=== PATIENT | male | born 1940 | race Caucasian/White ===

== ENCOUNTER 2016-10-28 16:20 | Emergency (ER) | payer MEDICARE ==
[2016-08-03 10:23] VITALS: BMI 27.3
[~2016-10-28 16:20] MED LIST: ALLERGY RELIEF; ASPIRIN 81 MG E81 MG PO; BETIMOL15 ML EACH EYE; BYSTOLIC10 MG PO; FISH OIL 1,0001 CA1 PO; IMDUR30 MG PO; LIPITOR20 MG PO; MULTI-DAY VITAM1 TAB PO; NIASPAN1000 MG PO; PACERONE100 MG PO; PLAVIX75 MG PO; RESTORIL15 MG PO; SUPER B COMPLEX; TEMAZEPAM30 MG PO; TIMOPTIC 0.5 % O5 ML EACH EYE; TRIGLIDE160 MG PO; XALATAN 0.0052.5 ML; XALATAN 0.0052.5 ML RIGHT EYE; ZETIA10 MG PO; ZOCOR40 MG PO
== END 2016-10-28 18:50 | disposition left against medical advice (07) ==
LOC: D.ER 16:20
DX: M54.5 Low back pain (principal)

== ENCOUNTER → 2017-06-23 16:36 | Outpatient (CLI) | payer MEDICARE ==
[2016-08-03 10:23] VITALS: BMI 27.3
[2017-06-23 18:19] LABS: CHOL - HDL RATIO 3.3 ratio (2.3-4.9)
== END | disposition home or self-care (01) ==
LOC: D.LABREF 16:36
PROVIDERS: Internal Medicine Interventional Cardiology
DX: E78.5 Hyperlipidemia, unspecified (principal)

== ENCOUNTER 2017-11-04 11:29 | Inpatient (IN) | payer OTHER ==
[~2017-11-04] VITALS: Ht 177.8 cm; Wt 86.2 kg
--- NOTE | ~2017-11-04 | OP ---
PATIENT NAME: HARRISON MARTINES MEDICAL RECORD: [id number] :38 LOCATION:D.MS Harden2234 ADMISSION DATE:11/04/17 SURGEON: YANELIS CALL MD DATE OF OPERATION: 11/07/2017 PREOPERATIVE DIAGNOSIS: Biliary dyskinesia. POSTOPERATIVE DIAGNOSES: Biliary dyskinesia with hepatomegaly. PROCEDURES: 1. Laparoscopic cholecystectomy. 2. Intraoperative cholangiography without immediate surgeon interpretation. 3. An 18-gauge core needle liver biopsy. SURGEON: Yanelis Call MD CHAIN PULLER: None. BLOOD LOSS: Minimal. ANESTHESIA: General. COMPLICATIONS: None. The risks, possible complications and alternatives to procedure were explained to the patient. The patient elects to proceed. The indication for liver biopsy was hepatomegaly. OPERATIVE COURSE: The patient was conveyed to the operating room electively on 11/07/2017. General anesthesia was induced by the anesthesia staff. The abdomen was sterilely prepped and draped. A small skin lydia was accomplished in the left upper quadrant. Veress needle was inserted through the skin lydia into the peritoneal cavity. CO2 insufflation was begun. Once a sufficient pneumoperitoneum had been achieved, a 5-mm trocar was inserted through an incision in the right upper quadrant. Under direct internal vision utilizing a television camera, a 12-mm trocar was inserted through an incision at the umbilicus. Another 5-mm trocar was inserted through an incision in the epigastrium. Another 5-mm trocar was inserted through an incision far laterally in the right upper quadrant. During insertion of the Veress needle and all trocars, there appeared to have been no injury to the bowels, any intraperitoneal, or retroperitoneal structures. Under laparoscopic guidance, I percutaneously accessed the right upper quadrant utilizing an 18-gauge core needle liver biopsy device. Cores were obtained over the convexity of the liver. The biopsy sites were made hemostatic with electrocautery. I then advanced a cholangiogram trocar. I punctured the fundus of the gallbladder. I aspirated bile. I then injected dye. A real time cholangiography images were obtained. These were sent to the radiologist for interpretation. The cholangiogram trocar was removed. The gallbladder was grasped and retracted cephalad. The infundibulum was grasped and retracted laterally. Blunt dissection was begun on the triangle of Calot. Two cystic arteries and one OPERATIVE REPORT [id number] MARTINES,HARRISON R cystic duct were identified. These were clipped multiply and divided between clips. Gallbladder was then excised from its bed in the liver. It was placed within an Endobag retrieval device and was withdrawn through the umbilical fascia defect. I irrigated and aspirated in the right upper quadrant. There was no bleeding even at low pressure of 8. Elijah was added to the gallbladder fossa for additional hemostasis. A Gene-Janna suture closure device and 0 Vicryl sutures were used to close the umbilical fascial defect. All the trocars were removed and the abdomen desufflated. The skin at the umbilicus was closed with interrupted 4-0 Vicryl Rapide sutures. The other skin incisions were closed with interrupted 3-0 Vicryls. Benzoin and Steri-Strips were applied. The patient was then extubated and conveyed to post-anesthesia care unit where the patient was in stable condition. TRANSINT:[id number] Voice Confirmation ID: [id number] DOCUMENT ID: [id number] YANELIS CALL MD at 0938 CC: JANETTE JOHNSON DO [id number] DICTATION DATE: 11/07/17 171 CYBER SECURITY SPECIALIST: 11/07/171927 DIS IN 11/09/17 [facility] [address] [place] [address]
--- NOTE | ~2017-11-04 | CN ---
PATIENT NAME:HARRISON MARTINES MEDICAL RECORD: [id number] : 38 LOCATION:D.MS [address]4 ADMIT DATE: 11/04/17 ACCOUNT: [id number] CONSULTING PHYSICIAN: YANELIS CALL MD REFERRING PHYSICIAN: JANETTE JOHNSON DO DATE OF CONSULTATION: 11/04/2017 HISTORY OF PRESENT ILLNESS: The patient has been admitted with nausea and vomiting, and the patient complained of abdominal pain to the Emergency Room practitioner; however, the patient denies any abdominal pain to me. Nothing seems to exacerbate and nothing seems to alleviate it. Reportedly, the patient has had several episodes of this in the past. The patient has poor short-term memory and poor long-term memory as well. REVIEW OF SYSTEMS: Positive for fatigue. No chest pain, no shortness of breath, no diarrhea, no back pain, no headache, no agitation, no rash, no night sweats, no weight loss, no anorexia, no hemoptysis. PAST MEDICAL AND SURGICAL HISTORY: Hyperlipidemia, chest pain, pneumonia, dehydration, and hypertension. FAMILY HISTORY: Reviewed and is not pertinent. HOME MEDICINES: Aspirin, Zetia, temazepam, tamsulosin, ezetimibe, Plavix, fenofibrate. ALLERGIES: CODEINE AND SULFATES. SOCIAL HISTORY: Nonsmoker. This is a consultation note addendum. For the typed portion of the consult note, please see the chart. This will include past medical and surgical history, current medications, allergies, social history as well as family history. PHYSICAL EXAMINATION: GENERAL: The patient does not appear acutely ill. He does not appear chronically ill. VITAL SIGNS: Reviewed. EARS: External ears appear normal. EYES: Extraocular movements are intact. NECK: Trachea is midline. CHEST: No intercostal retractions. PULMONARY: Nonlabored. No stridor. ABDOMEN: Nontender. EXTREMITIES: No peripheral cyanosis. INTEGUMENT: No rash, no ulcerations. PSYCHIATRIC: Normal affect. NEUROLOGIC: There is evidence of loss of higher cortical functioning, poor short-term memory, poor long-term memory. BACK: No thoracic kyphosis. IMPRESSION: Nausea and vomiting of uncertain etiology. PLAN: Continue with a gallbladder workup. CONSULT REPORT [id number] HARRISON MARTINES TRANSINT:[id number] Voice Confirmation ID: [id number] DOCUMENT ID: [id number] YANELIS CALL MD at 0938 CC: [id number] DICTATION DATE: 11/07/17 170 BEARINGIZER: 11/07/171926 DIS IN 11/09/17 [id number] [place] [address]
[2017-11-04 12:18] LABS: BASOPHILS 0.2 % (0-2); EOSINOPHILS 0.1 % (0-7); HEMATOCRIT 45.5 % (42.0-54.0); HEMOGLOBIN 15.6 g/dL (13.5-17.5); IMMATURE GRANULOCYTES 0.3 % (0-5); LYMPHOCYTES 16.1 % (15-50); MCH 30.1 pg (26.0-34.0); MCHC 34.3 g/dL (31.0-37.0); MCV 87.7 fL (80.0-100.0); MEAN PLATELET VOLUME 10.8 fL (7.4-10.4); MONOCYTES 4.9 % (2-11); NEUTROPHILS 78.4 % (40-80); RBC 5.19 10x6/uL (4.20-6.10); RDW 13.3 % (11.5-14.5); WBC 17.5 10x3/uL (4.8-10.8)
[2017-11-04 12:37] LABS: ALBUMIN 4.4 g/dL (3.4-5.0); ALKALINE PHOSPHATASE 42 U/L (46-116); ALT (SGPT) 24 U/L (10-68); CALC OSMOLALITY 283 mosm/kg (275-300); CALCIUM 10.4 mg/dL (8.5-10.1); CHLORIDE - SERUM 100 mmol/L (98-107); CREATININE - SERUM 1.5 mg/dL (0.6-1.3); POTASSIUM - SERUM 4.7 mmol/L (3.5-5.1); PROTEIN - SERUM 9.1 g/dL (6.4-8.2); SODIUM 137 mmol/L (136-145); UREA NITROGEN 28 mg/dL (7-18); eGFR NON AFRICAN AMERICAN 48 mL/min (90-120)
[2017-11-04 12:38] LABS: PLATELET COUNT 549 10x3/uL (130-400)
[2017-11-04 12:39] LABS: GLUCOSE 179 mg/dL (74-106); INR 1.04 (0.85-1.17); PROTIME 13.2 SECONDS (11.6-15.0)
[2017-11-04 12:53] LABS: APPEARANCE CLEAR (CLEAR); BILIRUBIN NEGATIVE (NEGATIVE); COLOR YELLOW (YELLOW); GLUCOSE NEGATIVE (NEGATIVE); KETONE NEGATIVE (NEGATIVE); NITRITE NEGATIVE (NEGATIVE); PROTEIN 2+ mg/dL (NEGATIVE); UROBILINOGEN NORMAL (NORMAL)
[2017-11-04 12:54] LABS: BACTERIA MODERATE /hpf (NONE SEEN); EPITHELIAL CELLS OCC /hpf (0-5); MUCUS <1+ /lpf (NONE SEEN); RED CELLS - URINE 0-5 /hpf (0-5); WHITE CELLS - URINE 0-5 /hpf (0-5)
[2017-11-04 12:58] LABS: AMYLASE - SERUM 54 U/L (25-115); CREATINE KINASE 242 UL (21-232); LIPASE 76 U/L (73-393); PRO BNP 3994 pg/mL (0-450); TROPONIN-I 0.045 ng/mL (0.000-0.060)
[2017-11-04 13:27] LABS: CKMB 2.7 U/L (0.0-3.6)
[2017-11-05] VITALS: BP 166/58
[2017-11-05 04:58] LABS: BASOPHILS 0.1 % (0-2); EOSINOPHILS 0.2 % (0-7); HEMATOCRIT 42.7 % (42.0-54.0); HEMOGLOBIN 14.2 g/dL (13.5-17.5); IMMATURE GRANULOCYTES 0.2 % (0-5); LYMPHOCYTES 17.1 % (15-50); MCH 29.8 pg (26.0-34.0); MCHC 33.3 g/dL (31.0-37.0); MCV 89.5 fL (80.0-100.0); MONOCYTES 8.4 % (2-11); PLATELET COUNT 461 10x3/uL (130-400); RBC 4.77 10x6/uL (4.20-6.10); RDW 13.5 % (11.5-14.5); WBC 16.2 10x3/uL (4.8-10.8)
[2017-11-05 05:11] LABS: ANION GAP 16.1 mmol/L (8-16); CALCIUM 9.4 mg/dL (8.5-10.1); CARBON DIOXIDE 23.2 mmol/L (21.0-32.0); POTASSIUM - SERUM 4.3 mmol/L (3.5-5.1)
[2017-11-05 05:17] LABS: CREATININE - SERUM 1.1 mg/dL (0.6-1.3)
[2017-11-05] MEDS ORDERED: FLOMAX0.4 MG PO (06:21)
[2017-11-05 08:34] VITALS: BP 140/48
[2017-11-05 14:09] VITALS: Ht 177.8 cm; Wt 86.2 kg
[2017-11-05 16:17] VITALS: BP 153/73
[2017-11-05 22:01] VITALS: BP 123/46
[2017-11-06] VITALS (7 sets, daily range): BP systolic 90–180; BP diastolic 44–66
[2017-11-06 05:02] LABS: ANION GAP 13.5 mmol/L (8-16); BILIRUBIN - TOTAL 0.3 mg/dL (0.2-1.3); CALCIUM 8.6 mg/dL (8.5-10.1); CARBON DIOXIDE 24.4 mmol/L (21.0-32.0); CREATININE - SERUM 1.1 mg/dL (0.6-1.3); POTASSIUM - SERUM 3.9 mmol/L (3.5-5.1)
[2017-11-06 05:10] LABS: PROTEIN - SERUM 6.4 g/dL (6.4-8.2)
[2017-11-07 04:29] VITALS: BP 135/4
[2017-11-07 12:34] VITALS: BP 177/53
[2017-11-07 18:58] VITALS: BP 152/53
[2017-11-08 05:43] LABS: ALBUMIN 2.5 g/dL (3.4-5.0); ALKALINE PHOSPHATASE 30 U/L (46-116); ALT (SGPT) 68 U/L (10-68); BILIRUBIN - TOTAL 0.31 mg/dL (0.2-1.3); CALC OSMOLALITY 272 mosm/kg (275-300); CALCIUM 8.1 mg/dL (8.5-10.1); CARBON DIOXIDE 24.7 mmol/L (21.0-32.0); CHLORIDE - SERUM 104 mmol/L (98-107); CREATININE - SERUM 0.9 mg/dL (0.6-1.3); GLUCOSE 113 mg/dL (74-106); MAGNESIUM - SERUM 1.6 mg/dL (1.8-2.4); PHOSPHOROUS 3.1 mg/dL (2.5-4.9); POTASSIUM - SERUM 3.5 mmol/L (3.5-5.1); PROTEIN - SERUM 5.9 g/dL (6.4-8.2); SODIUM 137 mmol/L (136-145); UREA NITROGEN 7 mg/dL (7-18); eGFR NON AFRICAN AMERICAN 87 mL/min (90-120)
[2017-11-08 05:44] LABS: BASOPHILS 0.3 % (0-2); EOSINOPHILS 1.3 % (0-7); HEMATOCRIT 38.5 % (42.0-54.0); HEMOGLOBIN 12.9 g/dL (13.5-17.5); IMMATURE GRANULOCYTES 0.2 % (0-5); LYMPHOCYTES 19.9 % (15-50); MCH 29.9 pg (26.0-34.0); MCHC 33.5 g/dL (31.0-37.0); MCV 89.1 fL (80.0-100.0); MONOCYTES 7.6 % (2-11); NEUTROPHILS 70.7 % (40-80); PLATELET COUNT 375 10x3/uL (130-400); RBC 4.32 10x6/uL (4.20-6.10); RDW 13.3 % (11.5-14.5); WBC 11.8 10x3/uL (4.8-10.8)
[2017-11-08 06:49] VITALS: BP 143/64
[2017-11-08 08:45] VITALS: BP 139/54
[2017-11-08 12:18] VITALS: BP 189/75
[2017-11-08 16:31] VITALS: BP 125/62
[2017-11-08 20:24] VITALS: BP 177/72
[2017-11-08 23:39] VITALS: BP 124/67
[2017-11-09 04:33] VITALS: BP 160/67
[2017-11-09 07:54] VITALS: BP 150/117
[2017-11-09 11:38] VITALS: BP 132/76
== END 2017-11-09 12:07 | disposition home or self-care (01) | DRG 419 ==
LOC: D.ER 11:29 → OBSVTIME 18:00 → D.MS 18:00
PROVIDERS: Emergency Medicine; Family Medicine; Nurse Practitioner Family; Surgery
PROC: 0FB03ZX Excision of Liver, Percutaneous Approach, Diagnostic (ICD-10-PCS; 2017-11-07)
PROC: 0FT44ZZ Resection of Gallbladder, Percutaneous Endoscopic Approach (ICD-10-PCS; principal; 2017-11-07 14:15)
PROC: BF121ZZ Fluoroscopy of Gallbladder using Low Osmolar Contrast (ICD-10-PCS; 2017-11-07 14:15)
DX: K82.8 Other specified diseases of gallbladder (principal); I10 Essential (primary) hypertension; H40.9 Unspecified glaucoma; R16.0 Hepatomegaly, not elsewhere classified

== ENCOUNTER 2018-01-02 10:13 | Inpatient (IN) | payer OTHER ==
[~2018-01-02] VITALS: Ht 177.8 cm; Wt 80.7 kg
--- NOTE | ~2018-01-02 | HEMODYNAMI ---
PATIENT:HARRISON MARTINES MEDICAL RECORD: [id number] : 38 [facility] [address] [facility] [id number] ADMISSION DATE: 01/02/18 Generatedon:01/03/201810:45 Patient name: HARRISON MARTINES Patient #: [id number] SSN: : 1940 Date of study: 01/03/2018 Page: Of Hemodynamic Procedure Report Patient Data Patient Demographics Procedure consent was obtained First Name: HARRISON Gender: Male Last Name: BOBBI : 1940 [facility] Initial: R Age: 77 year(s) Patient #: [id number] Race: Additional ID: [id number] Contact details [address]: [address] [place] [address] State: [place] City: [place] Zip code: [address] Past Medical History History of disease Date Diagnosis Comments PVD Allergies Allergen Reaction Date Comments Reported Codeine 05/07/2015 Other allergy 08/03/2016 Codeine Other allergy 01/03/2018 Codeine, Iodine Admission Admission Data Admission Date: 01/02/2018 Admission Time: 10:13 Room #: D.2121 Lab Results Lab Result Date: 01/03/2018 Lab Result Time: 0:00 Biochemistry Name Units Result Min Max BUN mg/dl 21 --(----)-* 7 18 Creatinine mg/dl 1.1 --(--*-)-- 0.6 1.3 CBC Name Units Result Min Max Hemoglobin g/dl 13.8 --(*---)-- 13.5 17.5 Procedure Procedure Types Cath Procedure Diagnostic Procedure LHC LHC w/Coronaries w/Grafts Cardioversion External Procedure Description Procedure Date Procedure Date: 01/03/2018 Procedure Start Time: 10:29 Procedure End Time: 10:41 Procedure Staff Name Function Rachel Tello MD Admitting Physician Rachel Tello MD Ordering physician Rachel Tello MD Interpreting senior technical trainer Jason Boyd MD Performing Physician Bel Aragon RT Monitor Nahun Fatima RN Nurse Jennifer Danielle RT Scrub Procedure Data Cath Procedure Fluoroscopy Diagnostic fluoroscopy Total fluoroscopy Time: 2.6 time: 2.6 min min Diagnostic fluoroscopy Total fluoroscopy dose: 332 dose: 332 mGy mGy Contrast Material Contrast Material Type Amount (ml) Isovue 300 62 Entry Location Entry Primary Successful Side Size Upsize Upsize Entry Closure Succes sful Closure Location (Fr) 1 (Fr) 2 (Fr) Remarks Device Remarks Femoral Right 5 Fr Exoseal artery Estimated blood loss: 10 ml Diagnostic catheters Device Type Used For End Catheter Placement MULTIPACK Pigtail 5 Fr Procedure catheter MULTIPACK JL 4.0 5Fr Procedure catheter MULTIPACK 3DRC 5Fr Procedure catheter DIAGNOSTIC AR 2 MOD 5 Fr Procedure catheter ([id number]) Procedure Complications No complications Procedure Medications Medication Administration Route Dosage Oxygen NC 6 l/min 0.9% NaCl I.V. 100 ml/hr Heparin Flush Bag added to field 2 bags (1000units/500ml NS) Refer to Anesthesia Notes for Sedation Medications Hemodynamics Rest HGB: 13.8 (g/dl) Heart Rate: 27 (bpm) Snapshots Pre Cath Intra NCS Post Cath Vital Signs Time Heart Resp SPO2 etCO2 NIBP (mmHg) Rhythm Pain Sedation Rate (ipm) (%) (mmHg) Status Level (bpm) 10:15:49 91 21 96 0 171/103(131) NSR 0 (11) 10(A) , No pain 10:26:50 84 18 27.9 152/83(127) NSR 0 (11) 9(A) , No pain 10:31:06 80 18 98 32.4 140/72(106) NSR 0 (11) 9(A) , No pain 10:35:20 81 16 97 33.9 125/64(93) NSR 0 (11) 9(A) , No pain 10:39:32 82 19 98 34.7 122/67(90) NSR 0 (11) 9(A) , No pain Medications Time Medication Route Dose Verified Delivered Reason Notes Effec tiveness by by 10:17:28 Oxygen NC 6 Jason Garnica used for l/min Deb Fatima supervisor cell efficiency 10:17:37 0.9% NaCl I.V. 100 Jasoncecilio Ringy Per ml/hr Deb Fatima RN physician 10:17:45 Heparin Flush added 2 Jason Garnica used for Bag to bags Deb Fatima supervisor cell efficiency (1000units/500ml field NS) 10:18:45 Refer to Jason Garnica Anesthesia Notes Deb Fatima RN for Sedation Medications Procedure Log Time Note 10:00:40 Jennifer Shashi RT(R) sent for patient. Start room use. 10:13:28 Vital chart was started 10:13:35 Diagnostic Cath status Elective 10:13:42 Time tracking: Regular hours 10:13:47 Plan of Care:Hemodynamics will remain stable., Cardiac rhythm will remain stable., Comfort level will be maintained., Respiratory function will remain adequate., Patient/ family verbilizes understanding of procedure., Procedure tolerated without complication., Recovers from procedure without complications.. 10:13:54 Patient received from Med II to CCL 2 Alert and oriented. Tansferred to table in Supine position. 10:13:55 Warm blankets applied, and mendel hugger turned on for patient comfort. 10:13:56 Correct patient and procedure confirmed by team. 10:13:59 Signed procedure consent form obtained from patient. 10:14:00 ECG and BP/O2 sat monitors applied to patient. 10:14:01 Baseline sample Acquired. 10:14:12 Full Disclosure recording started 10:14:20 H&P Date Dictated: 01/03/2018 Within 30 days and on chart.. 10:14:22 Pre-procedure instructions explained to patient. 10:14:24 Family in patients room. 10:14:26 Patient NPO since Midnight. 10:14:42 Patient allergic to Other allergyCodeine, Iodine 10:14:45 Is the patient allergic to Iodine/contrast media? Yes. 10:14:46 Was the patient premedicated? Yes 10:16:37 Baseline sample Acquired. 10:16:54 Rhythm: atrial fibrillation 10:17:04 Quick Combo opened to sterile field. 10:17:10 Is patient on blood thinner?Yes 10:17:13 ACC The patient was administered the following blood thiners within the last 24 hours: ACCPlavix 10:17:16 Patient diabetic? No. 10:17:20 Snore? Yes 10:17:22 Sleep apnea? No 10:17:27 Dentures? Yes ? 10:17:28 Oxygen 6 l/min NC was administered by Nahun Fatima RN; used for procedure; 10:17:37 0.9% NaCl 100 ml/hr I.V. was administered by Nahun Fatima RN; Per physician; 10:17:37 IV patent on arrival in right forearm with 0.9% NaCl at [facility]. 10:17:45 Heparin Flush Bag (1000units/500ml NS) 2 bags added to field was administered by Nahun Fatima RN; used for procedure; 10:18:03 Lab Result : Creatinine 1.1 mg/dl 10:18:03 Lab Result : BUN 21 mg/dl 10:18:03 Lab Result : Hemoglobin 13.8 g/dl 10:18:08 Lab results completed and on chart. 10:18:12 Right groin area was prepped with chlora-prep and draped in sterile fashion 10:18:13 Alarms reviewed by R. N. 10:18:14 Sharps counted by scrub and verified by R.N. 10:18:16 Physician paged 10:18:16 Physician arrived 10:18:18 --------ALL STOP TIME OUT------ 10:18:19 Final Timeout: patient, procedure, and site verified with staff and physician. All members of the team are in agreement. 10:18:22 Right groin site verified by team. 10:18:28 Physical assessment completed. ASA score P 2 - A patient with mild systemic disease as per Jason Boyd MD. 10:18:35 Sedation plan: TIVA Medication:Propofol 10:18:40 Use device set Femoral Dx 10:18:42 ACIST Syringe (96974) opened to sterile field. 10:18:42 Bag Decanter () opened to sterile field. 10:18:43 Medline Cath Pack ([id number]) opened to sterile field. 10:18:44 SHEATH 5FR [place] (UFM143) opened to sterile field. 10:18:44 DIAGNOSTIC WIRE .035 260cm J wire (620708) opened to sterile field. 10:18:45 Refer to Anesthesia Notes for Sedation Medications was administered by Nahun Fatima RN; ; 10:18:48 ACIST Hand Control (98719) opened to sterile field. 10:18:49 ACIST Manifold (34293) opened to sterile field. 10:18:49 DIAGNOSTIC Multipack 5Fr catheter set ([id number]) opened to sterile field. 10:18:49 Tegaderm 4 x 4 (1626W) opened to sterile field. 10:18:52 PERCUTANEOUS ENTRY 19GA needle opened to sterile field. 10:24:17 Procedure started. 10:24:44 Quick combo pads placed on patients chest and back. 10:24:47 Defibrillator synced and charged to 250 Joules. 10:24:49 Shock delivered. 10:26:11 Patient cardioverted to sinus rhythm . 10:29:14 Local anesthetic to right femoral artery with Lidocaine 2% by Jason Boyd MD.INITIAL ACCESS ONLY 10:29:25 A 5 Fr sheath was inserted into the Right Femoral artery 10:29:28 Zero performed for pressure channel P1 10:29:57 A MULTIPACK Pigtail 5 Fr catheter was advanced over the wire and used for Procedure. 10:31:20 LV angiography performed. 10:33:06 EF : 40 % 10:33:07 Catheter removed. 10:33:17 A MULTIPACK JL 4.0 5Fr catheter was advanced over the wire and used for Procedure. 10:33:45 LCA angiography performed. 10:33:47 Catheter removed. 10:34:39 A MULTIPACK 3DRC 5Fr catheter was advanced over the wire and used for Procedure. 10:34:58 STRANGE to LAD angiography performed. 10:35:13 RCA angiography performed. 10:35:39 Catheter removed. 10:36:20 A DIAGNOSTIC AR 2 MOD 5 Fr catheter ([id number]) was advanced over the wire and used for Procedure. 10:36:41 SVG to Circ angiography performed. 10:36:51 SVG to RCA angiography performed. 10:37:54 Catheter removed. 10:38:09 Sheath removed intact; hemostasis achieved with Exoseal to the Right Femoral artery. 10:38:12 Procedure ended.(Physican Out) 10:38:33 Fluoroscopy time 02.60 minutes. 10:38:38 Fluoroscopy dose: 332 mGy 10:38:38 Flurop Dose total: 332 10:38:50 Contrast amount:Isovue 300 62ml. 10:38:52 Sharps counted by scrub and verified by R.N. 10:38:58 Insertion/operative site no bleeding no hematoma. 10:39:01 Post-op/insertion site Right Femoral artery dressed using a 4 x 4 and Tegaderm. 10:39:06 EXOSEAL 5Fr (EX500) opened to sterile field. 10:39:50 Post right femoral artery:stable 10:39:53 Post Procedure Pulses reassessed and unchanged 10:39:58 Post-procedure physical assessment completed. ASA score P 2 - A patient with mild systemic disease as per Jason Boyd MD. 10:40:02 Post procedure rhythm: sinus rhythm 10:40:08 Estimated blood loss: 10 ml 10:40:11 Post procedure instruction explained to patient.Patient verbalizes understanding. 10:40:42 Procedure type changed to Cath procedure, Diagnostic procedure, LHC, LHC w/Coronaries w/Grafts, Cardioversion External 10:40:43 Procedure and supply charges have been captured, reviewed, submitted and are correct. 10:41:10 Procedure Complication : No complications 10:41:12 Vital chart was stopped 10:41:13 See physician's report for complete and final results. 10:41:14 Report given to Pre/Post Procedure Room. 10:41:20 Patient transfered to [facility] with Bed. 10:41:30 Procedure ended. 10:41:30 Full Disclosure recording stopped 10:41:33 End room use (Document Last) Device Usage Item Name Manufacture Quantity Catalog Hospital Part Current Minim al Lot# / Number Charge Number Stock Stock Serial# Code Quick Combo Edge Systems 1 [id number] 637075 022522 488152 5 ACIST Acist 1 95277 868064 985337 426934 20 Syringe Medical (55957) Systems Inc Bag Decanter Microtek 1 2001S 643238 84021 555533 5 () Medical Inc. Medline Cath Cardinal 1 [id number] 701024 13956 776331 5 Pack Health ([id number]) SHEATH 5FR Terumo 1 IAN210 028638 124236 484204 40 [place] (DNB544) DIAGNOSTIC St Emigdio 1 065249 124408 467401 883125 30 WIRE .035 260cm J wire (622976) ACIST Hand Acist 1 35423 389799 512646 858606 5 Control Medical (02019) Systems Inc ACIST Acist 1 84587 409930 545305 228883 5 Manifold Medical (73554) Systems Inc DIAGNOSTIC Cardinal 1 [id number] 617649 45418 558188 30 Multipack Health 5Fr catheter set (VT3957) Tegaderm 4 x 3M 1 1626W 587174 164885 425474 5 4 (1626W) PERCUTANEOUS [facility] 1 X10582 185699 923117 5 ENTRY 19GA needle MULTIPACK Cardinal 1 991076 5 Pigtail 5 Fr Health catheter MULTIPACK JL Cardinal 1 848783 5 4.0 5Fr Health catheter MULTIPACK Cardinal 1 083077 5 3DRC 5Fr Health catheter DIAGNOSTIC Cardinal 1 [id number] 959160 038521 102024 20 AR 2 MOD 5 Health Fr catheter ([id number]) EXOSEAL 5Fr Cardinal 1 EX500 048681 907355 586531 10 (EX500) Health Signature Audit [place] Stage Time Signature Unsigned Intra-Procedure 01/03/2018 Bel Aragon 10:44:58 AM RT(R) Signatures Monitor : Bel Aragon Signature : RT Date : Time : [id number] [place] [address]
--- NOTE | ~2018-01-02 | CN ---
PATIENT NAME:HARRISON MARTINES MEDICAL RECORD: [id number] : 38 LOCATION:. D.2121 ADMIT DATE: 01/02/18 ACCOUNT: [id number] CONSULTING PHYSICIAN: MADELINE HARRIS MD REFERRING PHYSICIAN: JANETTE JOHNSON DO DATE OF CONSULTATION: 01/02/2018 CARDIOLOGY CONSULT DIAGNOSES: 1. Angina. 2. Coronary disease. 3. Previous PTCA and stent. 4. New-onset atrial fibrillation. 5. Hyperlipidemia. HISTORY: Mr. Martines began having symptomatology this morning of chest discomfort and palpitations. He was found to be in atrial fibrillation with rapid response. He has ST-T changes anteriorly. His last PTCA and stent was in RCA in July of 2016. REVIEW OF SYSTEMS: The patient reports easy bruising but reports no swollen glands. The patient reports no fever, no night sweats, no significant weight gain, no significant weight loss. No significant exercise tolerance. The patient reports no dry eyes, no irritation, no vision change. Patient reports no difficulty hearing and no ear pain. Patient reports no frequent nose bleeds or nose and sinus problems. Patient reports on arm pain on exertion. No shortness of breath while lying down. No history of heart murmur. Patient reports no cough, no wheezing or coughing up blood. Patient reports no abdominal pain, no vomiting. Normal appetite. No diarrhea and not vomiting blood. No nausea and no constipation. Patient reports no incontinence. No difficulty urinating. No hematuria. No increased frequency. Patient reports no muscle aches. No weakness, no arthralgias, no back pain. No swelling of the extremities. Patient reports no abnormal mole, no jaundice, no rashes. Reports no loss of consciousness. No weakness and no numbness. No seizures, dizziness, or headaches. The patient reports no depression, no sleep disturbance, feeling safe in a relationship and no alcohol abuse. Patient reports on fatigue. Reports no runny nose or sinus pressure. No itching, no hives, and no frequent sneezing. PHYSICAL EXAMINATION: GENERAL APPEARANCE: Well-nourished, well-developed, appears stated age. Level of distress, comfortable. PSYCHIATRIC: Mental status, alert, normal affect. Orientation, oriented to time, place and person. EYES: Lids and conjunctiva, noninjected. No discharge, no pallor. ENT: Lips, teeth, gums, normal dentition. Oropharynx, no cyanosis, no pallor. NECK: Carotid arteries, bilateral normal upstroke, no bruits, no thrills. JUGULAR VEINS: No jugular venous pressure or distention. CERVICAL LYMPH NODES: Nontender, nonenlarged. THYROID: Not enlarged. Nontender. No nodules. LUNGS: Respiratory effort, unlabored. CHEST: Normal curvature. No thoracic deformity. No chest wall tenderness. Percussion, resonant. Auscultation, clear. No wheezes, no rales, no rhonchi. CARDIOVASCULAR: Precordial exam, nondisplaced. No heaves or pericardial CONSULT REPORT [id number] MARTINESHARRISON R thrills. Rate and rhythm, regular. Heart sounds, normal S1, normal S2. No S3, no gallop, no rub. Systolic murmur, not heard. Diastolic murmur, not heard. EXTREMITIES: No cyanosis, no edema. Peripheral pulses, full and equal in all extremities, except as noted. No bruits appreciated. ABDOMEN: Soft, nondistended. Normal aorta. No bruit. Nontender. No masses. Liver, nontender, no hepatomegaly. Spleen, nontender, no splenomegaly. MUSCULOSKELETAL: No joint tenderness. No joint swelling. No erythema. NEUROLOGICAL: Normal gait, normal strength, normal tone. SKIN: Warm and dry. OVERALL IMPRESSION: 1. Atrial fibrillation with rapid ventricular response. At this time, we will give him IV Cardizem bolus 20 mg times one and start him on sotalol 120 mg p.o. b.i.d. 2. Ischemic heart disease and angina. Most likely, he has recurrent hemodynamically significant disease with EKG changes and new-onset atrial fibrillation. We will slow his rate down. Plan for cardiac catheterization in the a.m. If he does not convert pharmacologically, we will perform DC cardioversion with cardiac catheterization in the a.m. TRANSINT:[id number] Voice Confirmation ID: [id number] DOCUMENT ID: [id number] MADELINE HARRIS MD at 1041 CC: [id number] DICTATION DATE: 01/02/18 1143 GROUP HOME SUPERVISOR: 01/02/18 1159 ADM IN [address] [place] [address]
--- NOTE | ~2018-01-02 | OP ---
PATIENT NAME: HARRISON MARTINES MEDICAL RECORD: [id number] :38 LOCATION:D.M2 D.2121 ADMISSION DATE:01/02/18 SURGEON: MADELINE HARRIS MD DATE OF OPERATION: 01/03/2018 PROCEDURES: 1. DC cardioversion. 2. Left heart catheterization. 3. Selective coronary angiography. 4. Left ventriculogram. 5. Vein graft angiography. 6. STRANGE angiography. INDICATION: Angina and coronary artery disease. PROCEDURE IN DETAIL: After informed consent was obtained and after a detailed explanation of risks, benefits as well as alternative therapies, the patient elected to proceed with angiogram and cardioversion. IV conscious sedation was performed per anesthesia. Continuous heart rate, O2 saturation, blood pressure monitoring all undertaken, all of which remains stable. FINDINGS: Left ventriculogram was performed in standard 30-degree MENDEZ view, reveals mild global hypokinesis throughout all segments. Overall ejection fraction 40%. SELECTIVE CORONARY ANGIOGRAPHY: 1. Left main showed no significant angiographic disease. 2. Left anterior descending is totally occluded in the proximal vessel. 3. Left circumflex is totally occluded in the proximal vessel. 4. Right coronary is totally occluded in the proximal vessel. 5. STRANGE to the LAD is widely patent. Distal LAD is widely patent. 6. Vein graft to the circumflex is widely patent. Distal circumflex is widely patent. 7. Vein graft to the RCA is widely patent. Distal RCA is widely patent. DC cardioversion; he received 1 shock at 275 joules restoring sinus rhythm. OVERALL IMPRESSION: Successful DC cardioversion from atrial fibrillation to sinus rhythm. No new coronary artery disease is present. Continue medical management of the atrial fibrillation and coronary artery disease. TRANSINT:[id number] Voice Confirmation ID: [id number] DOCUMENT ID: [id number] MADELINE HARRIS MD at 1202 CC: [id number] DICTATION DATE: 01/03/18 1112 CELL TECHNICIAN: 01/03/18 1123 DIS IN 01/03/18 [place] [id number]
[~2018-01-02 10:13] MED LIST changes: +FLOMAX0.4 MG PO
[2018-01-02 10:59] VITALS: BP 120/83; BMI 26.3
[2018-01-02 12:23] VITALS: BP 123/48
[2018-01-02 12:34] LABS: BASOPHILS 0.7 % (0-2); EOSINOPHILS 7.4 % (0-7); HEMATOCRIT 42.9 % (42.0-54.0); HEMOGLOBIN 13.9 g/dL (13.5-17.5); IMMATURE GRANULOCYTES 0.3 % (0-5); LYMPHOCYTES 33.5 % (15-50); MCH 30.1 pg (26.0-34.0); MCHC 32.4 g/dL (31.0-37.0); MCV 92.9 fL (80.0-100.0); MONOCYTES 10.7 % (2-11); NEUTROPHILS 47.4 % (40-80); PLATELET COUNT 351 10x3/uL (130-400); RBC 4.62 10x6/uL (4.20-6.10); RDW 14.1 % (11.5-14.5); WBC 7.2 10x3/uL (4.8-10.8)
[2018-01-02 12:56] LABS: ALBUMIN 3.6 g/dL (3.4-5.0); ALKALINE PHOSPHATASE 36 U/L (46-116); ALT (SGPT) 19 U/L (10-68); BILIRUBIN - TOTAL 0.37 mg/dL (0.2-1.3); CALCIUM 9.5 mg/dL (8.5-10.1); CARBON DIOXIDE 27.3 mmol/L (21.0-32.0); CHLORIDE - SERUM 104 mmol/L (98-107); CKMB 0.6 U/L (0.0-3.6); CREATINE KINASE 41 UL (21-232); GLUCOSE 110 mg/dL (74-106); POTASSIUM - SERUM 4.3 mmol/L (3.5-5.1); PROTEIN - SERUM 7.8 g/dL (6.4-8.2); SODIUM 140 mmol/L (136-145); THYROID STIMULATING HORMONE 1.68 uIU/mL (0.36-3.74); eGFR NON AFRICAN AMERICAN 77 mL/min (90-120)
[2018-01-02 13:01] LABS: CALC OSMOLALITY 281 mosm/kg (275-300); TROPONIN-I < 0.017 ng/mL (0.000-0.060); UREA NITROGEN 19 mg/dL (7-18)
[2018-01-02 15:56] VITALS: BP 109/69
[2018-01-02 17:59] LABS: CKMB 0.5 U/L (0.0-3.6); CREATINE KINASE 41 UL (21-232); TROPONIN-I < 0.017 ng/mL (0.000-0.060)
[2018-01-02 19:00] VITALS: BP 105/51
[2018-01-02 23:45] LABS: CKMB 0.5 U/L (0.0-3.6); CREATINE KINASE 42 UL (21-232); TROPONIN-I < 0.017 ng/mL (0.000-0.060)
[2018-01-03] VITALS: BP 141/74
[2018-01-03 04:00] VITALS: BP 139/79
[2018-01-03 05:55] LABS: BASOPHILS 0.9 % (0-2); EOSINOPHILS 7.2 % (0-7); HEMATOCRIT 42.6 % (42.0-54.0); HEMOGLOBIN 13.8 g/dL (13.5-17.5); IMMATURE GRANULOCYTES 0.1 % (0-5); LYMPHOCYTES 32.7 % (15-50); MCH 29.6 pg (26.0-34.0); MCHC 32.4 g/dL (31.0-37.0); MCV 91.4 fL (80.0-100.0); MEAN PLATELET VOLUME 11.5 fL (7.4-10.4); MONOCYTES 10.4 % (2-11); NEUTROPHILS 48.7 % (40-80); RBC 4.66 10x6/uL (4.20-6.10); RDW 14.1 % (11.5-14.5)
[2018-01-03 06:06] LABS: PLATELET COUNT 425 10x3/uL (130-400); WBC 9.4 10x3/uL (4.8-10.8)
[2018-01-03 06:13] LABS: ALBUMIN 3.7 g/dL (3.4-5.0); ANION GAP 14.4 mmol/L (8-16); BILIRUBIN - TOTAL 0.39 mg/dL (0.2-1.3); CALCIUM 9.2 mg/dL (8.5-10.1); CARBON DIOXIDE 25.6 mmol/L (21.0-32.0); CREATININE - SERUM 1.1 mg/dL (0.6-1.3); PROTEIN - SERUM 7.9 g/dL (6.4-8.2)
[2018-01-03 08:06] VITALS: BP 130/52
[2018-01-03 10:18] VITALS: Ht 177.8 cm; Wt 80.7 kg
[2018-01-03] MEDS ORDERED: BETAPACE 120 M120 MG PO (12:18)
[2018-01-03] MEDS ORDERED: PLAVIX75 MG PO (12:22)
== END 2018-01-03 14:45 | disposition home or self-care (01) | DRG 287 ==
LOC: D.M2 10:13
PROVIDERS: Family Medicine; Internal Medicine Interventional Cardiology
PROC: B2151ZZ Fluoroscopy of Left Heart using Low Osmolar Contrast (ICD-10-PCS; 2018-01-03)
PROC: 4A023N7 Measurement of Cardiac Sampling and Pressure, Left Heart, Percutaneous Approach (ICD-10-PCS; 2018-01-03)
PROC: B2111ZZ Fluoroscopy of Multiple Coronary Arteries using Low Osmolar Contrast (ICD-10-PCS; principal; 2018-01-03 11:00)
PROC: B2181ZZ Fluoroscopy of Left Internal Mammary Bypass Graft using Low Osmolar Contrast (ICD-10-PCS; 2018-01-03 11:00)
DX: I48.91 Unspecified atrial fibrillation (principal); I25.119 Atherosclerotic heart disease of native coronary artery with unspecified angina pectoris; E78.5 Hyperlipidemia, unspecified; I25.82 Chronic total occlusion of coronary artery; Z95.1 Presence of aortocoronary bypass graft; Z95.5 Presence of coronary angioplasty implant and graft; Z87.891 Personal history of nicotine dependence

== ENCOUNTER 2018-03-09 16:47 | Inpatient (IN) | payer OTHER ==
[~2018-03-09] VITALS: Ht 177.8 cm; Wt 78.6 kg
--- NOTE | ~2018-03-09 | EC ---
PATIENT:HARRISON MARTINES DATE OF SERVICE: 03/11/18 SEX: M MEDICAL RECORD: [id number] DATE OF : 38 LOCATION:D.M2 D.212 AGE OF PATIENT: 78 ADMISSION DATE: 03/11/18 REFERRING PHYSICIAN: INTERPRETING PHYSICIAN: MICHELLE GOODRICH MD ECHOCARDIOGRAM REPORT ECHO CHARGES 4 ECHO COMPLETE Date: 03/10 CLINICAL DIAGNOSIS: BRADYCARDIA ECHOCARDIOGRAPHIC MEASUREMENTS (adult normal given) AC root (d.<3.7cm) 3.7 cm LV Septum d (<1.2 cm> 1.6 cm Valve Excursion 2.1 cm LV Septum (systole) 2.2 cm Left Atria (s.<4.0cm> 3.3 cm LVPW d(<1.2cm) 1.6 cm RV (d.<2.3cm) 2.3 cm LVPW (sytole) 1.9 cm LV diastole(<5.6CM) 5.1 cm MV E-F(>70mm/sec) cm LV systole 3.2 cm LVOT Diameter 1.9 cm MV exc.(>10mm) cm Est.ejection fraction (50-75%) % DOPPLER: LVIT cm/sec A 101 cm/sec E 79.0 cm/sec LA cm/sec RVSP 38.0 mmHg LVOT 82.0 cm/sec AOP1/2T m/s Asc. Ao 98.0 cm/sec RVOT 91.0 cm/sec RA cm/sec PA 113 cm/sec AV Gradient Peak 4.0 mmHg AV Mean 1.9 mmHg AV Area 2.2 cm MV Gradient Peak 4.3 mmHg MV Mean 1.2 mmHg MV Area cm COMMENTS: Motion Picture Set Up Worker: Pooja THOMASOE Sanitary Inspector: Rajan Goodrich TAPE# PACS Pericardial Effusion N DATE OF SERVICE: PROCEDURE: Transthoracic echocardiogram. FINDINGS: 1. Left ventricle shows evidence of left ventricular hypertrophy. Left ventricle is mildly dilated. There is mild global hypokinesis. Ejection fraction appears to be mildly reduced at 45%. There is inflow characteristics consistent with diastolic dysfunction. 2. The left atrium is normal size, normal function, but not well visualized. ECHOCARDIOGRAM REPORT [id number] HARRISON MARTINES 3. The aortic valve is grossly normal. 4. The mitral valve is grossly normal with mild mitral regurgitation. 5. The tricuspid valve not well visualized. Moderate tricuspid regurgitation. RVSP is 38 mmHg. 6. The right ventricle and right atrium are normal in size, normal function. 7. The pulmonic valve is grossly normal. CONCLUSIONS: There is evidence of hypertensive heart disease that has mildly dilated cardiomyopathy. TRANSINT:[id number] Voice Confirmation ID: [id number] DOCUMENT ID: [id number] MICHELLE GOODRICH MD at 1057 CC: [id number] DICTATION DATE: 03/14/18 0646 PERSONAL DEVELOPMENT MENTOR: 03/14/18 1405 DIS IN 03/12/18 [facility] [address] [place] [address]
[~2018-03-09 16:47] MED LIST changes: +BETAPACE 120 M120 MG PO
[2018-03-09 17:15] LABS: APPEARANCE TURBID (CLEAR); COLOR YELLOW (YELLOW)
[2018-03-09 17:16] LABS: BILIRUBIN NEGATIVE (NEGATIVE); GLUCOSE NEGATIVE (NEGATIVE); KETONE NEGATIVE (NEGATIVE); NITRITE POSITIVE (NEGATIVE); PROTEIN 1+ mg/dL (NEGATIVE); UROBILINOGEN NORMAL (NORMAL)
[2018-03-09 17:18] LABS: WHITE CELLS - URINE >50 /hpf (0-5)
[2018-03-09 17:19] LABS: RED CELLS - URINE 0-5 /hpf (0-5)
[2018-03-09 17:20] LABS: BACTERIA MANY /hpf (NONE SEEN); EPITHELIAL CELLS 0-5 /hpf (0-5)
[2018-03-09 17:26] LABS: BASOPHILS 0.6 % (0-2); EOSINOPHILS 4.1 % (0-7); HEMATOCRIT 41.4 % (42.0-54.0); HEMOGLOBIN 13.7 g/dL (13.5-17.5); IMMATURE GRANULOCYTES 0.2 % (0-5); LYMPHOCYTES 29.3 % (15-50); MCH 29.7 pg (26.0-34.0); MCHC 33.1 g/dL (31.0-37.0); MCV 89.6 fL (80.0-100.0); MEAN PLATELET VOLUME 11.2 fL (7.4-10.4); NEUTROPHILS 56.8 % (40-80); PLATELET COUNT 406 10x3/uL (130-400); RBC 4.62 10x6/uL (4.20-6.10); RDW 13.8 % (11.5-14.5); WBC 10.4 10x3/uL (4.8-10.8)
[2018-03-09 17:38] LABS: ALBUMIN 3.6 g/dL (3.4-5.0); ALKALINE PHOSPHATASE 34 U/L (46-116); ALT (SGPT) 21 U/L (10-68); BILIRUBIN - TOTAL 0.46 mg/dL (0.2-1.3); CALC OSMOLALITY 283 mosm/kg (275-300); CALCIUM 9.2 mg/dL (8.5-10.1); CARBON DIOXIDE 25.3 mmol/L (21.0-32.0); CHLORIDE - SERUM 104 mmol/L (98-107); CREATININE - SERUM 0.9 mg/dL (0.6-1.3); GLUCOSE 108 mg/dL (74-106); POTASSIUM - SERUM 4.7 mmol/L (3.5-5.1); PROTEIN - SERUM 7.9 g/dL (6.4-8.2); SODIUM 140 mmol/L (136-145); UREA NITROGEN 23 mg/dL (7-18); eGFR NON AFRICAN AMERICAN 86 mL/min (90-120)
[2018-03-09 17:47] LABS: CHOL - HDL RATIO 3.9 ratio (2.3-4.9); CHOLESTEROL, TOTAL 172 mg/dL (0-200); CREATINE KINASE 56 UL (21-232); HDL CHOLESTEROL 44 mg/dL (32-96); LDL CHOLESTEROL 113 mg/dL (0-100); LDL-HDL RATIO 2.6 ratio (1.5-3.5); TRIGLYCERIDE 78 mg/dL (30-200)
[2018-03-09 17:48] LABS: TROPONIN-I < 0.017 ng/mL (0.000-0.060)
[2018-03-09 20:36] VITALS: BP 192/98
[2018-03-10 01:30] VITALS: BP 166/47
[2018-03-10 04:40] VITALS: BP 184/47
[2018-03-10 07:54] VITALS: BP 195/60
[2018-03-10 09:50] VITALS: Ht 177.8 cm; Wt 78.6 kg
[2018-03-10 10:27] LABS: PRO BNP 3145 pg/mL (0-450)
[2018-03-10 10:35] LABS: TROPONIN-I < 0.017 ng/mL (0.000-0.060)
[2018-03-10 11:53] VITALS: BP 183/60
[2018-03-10 16:35] VITALS: BP 182/44
[2018-03-10 20:20] VITALS: BP 149/56
[2018-03-11 00:41] VITALS: BP 156/57
[2018-03-11 05:34] LABS: BASOPHILS 0.4 % (0-2); EOSINOPHILS 2.9 % (0-7); HEMATOCRIT 39.1 % (42.0-54.0); HEMOGLOBIN 13.2 g/dL (13.5-17.5); IMMATURE GRANULOCYTES 0.3 % (0-5); LYMPHOCYTES 33.3 % (15-50); MCH 29.7 pg (26.0-34.0); MCHC 33.8 g/dL (31.0-37.0); MCV 88.1 fL (80.0-100.0); MONOCYTES 10.2 % (2-11); NEUTROPHILS 52.9 % (40-80); PLATELET COUNT 398 10x3/uL (130-400); RBC 4.44 10x6/uL (4.20-6.10); RDW 13.7 % (11.5-14.5); WBC 10.4 10x3/uL (4.8-10.8)
[2018-03-11 05:57] VITALS: BP 159/99
[2018-03-11 06:06] LABS: ALBUMIN 3.1 g/dL (3.4-5.0); ANION GAP 14.5 mmol/L (8-16); BILIRUBIN - TOTAL 0.38 mg/dL (0.2-1.3); CALCIUM 8.9 mg/dL (8.5-10.1); CARBON DIOXIDE 23.5 mmol/L (21.0-32.0); CREATININE - SERUM 1.1 mg/dL (0.6-1.3); PROTEIN - SERUM 6.9 g/dL (6.4-8.2)
[2018-03-11 08:11] VITALS: BP 161/98
[2018-03-11 11:22] VITALS: BP 155/41
[2018-03-11 15:29] VITALS: BP 133/50
[2018-03-11 21:35] VITALS: BP 128/66
[2018-03-12 00:46] VITALS: BP 157/50
[2018-03-12 04:54] LABS: BASOPHILS 0.5 % (0-2); EOSINOPHILS 3.8 % (0-7); HEMATOCRIT 38.6 % (42.0-54.0); IMMATURE GRANULOCYTES 0.2 % (0-5); LYMPHOCYTES 34.9 % (15-50); MCH 29.6 pg (26.0-34.0); MCHC 33.7 g/dL (31.0-37.0); MCV 87.9 fL (80.0-100.0); MEAN PLATELET VOLUME 10.9 fL (7.4-10.4); MONOCYTES 11.2 % (2-11); NEUTROPHILS 49.4 % (40-80); PLATELET COUNT 402 10x3/uL (130-400); RBC 4.39 10x6/uL (4.20-6.10); RDW 13.7 % (11.5-14.5); WBC 10.9 10x3/uL (4.8-10.8)
[2018-03-12 05:43] LABS: ANION GAP 15.7 mmol/L (8-16); CALCIUM 8.9 mg/dL (8.5-10.1); CARBON DIOXIDE 21.4 mmol/L (21.0-32.0); MAGNESIUM - SERUM 1.9 mg/dL (1.8-2.4); POTASSIUM - SERUM 4.1 mmol/L (3.5-5.1); THYROID STIMULATING HORMONE 2.45 uIU/mL (0.36-3.74)
[2018-03-12 05:45] LABS: CREATININE - SERUM 1.5 mg/dL (0.6-1.3)
[2018-03-12 08:51] VITALS: BP 132/45
[2018-03-12 12:13] VITALS: BP 150/54
[2018-03-12] MEDS ORDERED: BACTRIM DS TABL1 TAB PO (14:10)
[2018-03-12] MEDS ORDERED: LISINOPRIL10 MG PO (14:11)
[2018-03-12] MEDS ORDERED: FLORAJEN3 CAPS460 MG PO (14:12)
== END 2018-03-12 15:35 | disposition home or self-care (01) | DRG 309 ==
LOC: D.ER 16:47 → D.M2 18:35 → D.EDHOLD 18:35 → D.M2 18:35 → OBSVTIME 18:35 → D.M2 19:13
PROVIDERS: Emergency Medicine; Family Medicine; Internal Medicine Cardiovascular Disease
DX: R00.1 Bradycardia, unspecified (principal); N39.0 Urinary tract infection, site not specified; I16.0 Hypertensive urgency; I25.10 Atherosclerotic heart disease of native coronary artery without angina pectoris; Z95.5 Presence of coronary angioplasty implant and graft; Z95.1 Presence of aortocoronary bypass graft; F32.9 Major depressive disorder, single episode, unspecified

== ENCOUNTER 2018-06-06 15:10 | Emergency (ER) | payer OTHER ==
[~2018-06-06] VITALS: Ht 177.8 cm; Wt 83.2 kg
[~2018-06-06 15:10] MED LIST changes: +BACTRIM DS TABL1 TAB PO; +FLORAJEN3 CAPS460 MG PO; +LISINOPRIL10 MG PO
[2018-06-06 15:45] VITALS: Ht 177.8 cm; Wt 83.2 kg
[2018-06-06] MEDS ORDERED: COZAAR50 MG PO (15:47)
[2018-06-06 16:12] LABS: BASOPHILS 0.2 % (0-2); EOSINOPHILS 0.5 % (0-7); HEMATOCRIT 41.8 % (42.0-54.0); HEMOGLOBIN 14.7 g/dL (13.5-17.5); IMMATURE GRANULOCYTES 0.4 % (0-5); LYMPHOCYTES 20.4 % (15-50); MCH 30.8 pg (26.0-34.0); MCHC 35.2 g/dL (31.0-37.0); MCV 87.6 fL (80.0-100.0); MEAN PLATELET VOLUME 10.3 fL (7.4-10.4); MONOCYTES 5.7 % (2-11); NEUTROPHILS 72.8 % (40-80); RBC 4.77 10x6/uL (4.20-6.10); RDW 12.9 % (11.5-14.5); WBC 16.9 10x3/uL (4.8-10.8)
[2018-06-06 16:14] LABS: PLATELET COUNT 487 10x3/uL (130-400)
[2018-06-06 16:20] LABS: APTT 31.7 SECONDS (22.8-39.4); INR 1.07 (0.85-1.17); PROTIME 13.5 SECONDS (11.6-15.0)
[2018-06-06 16:22] LABS: D-DIMER-QUANTITATIVE 2.23 ug/mLFEU (0.20-0.54)
[2018-06-06 18:00] LABS: ALBUMIN 3.8 g/dL (3.4-5.0); ALKALINE PHOSPHATASE 43 U/L (46-116); ALT (SGPT) 26 U/L (10-68); BILIRUBIN - TOTAL 0.59 mg/dL (0.2-1.3); CALC OSMOLALITY 279 mosm/kg (275-300); CALCIUM 9.9 mg/dL (8.5-10.1); CARBON DIOXIDE 21.4 mmol/L (21.0-32.0); CHLORIDE - SERUM 102 mmol/L (98-107); GLUCOSE 131 mg/dL (74-106); PROTEIN - SERUM 8.3 g/dL (6.4-8.2); SODIUM 138 mmol/L (136-145); UREA NITROGEN 17 mg/dL (7-18); eGFR NON AFRICAN AMERICAN 76 mL/min (90-120)
[2018-06-06 18:12] LABS: AMYLASE - SERUM 66 U/L (25-115); CKMB 1.2 U/L (0.0-3.6); CREATINE KINASE 47 UL (21-232); LIPASE 82 U/L (73-393); MAGNESIUM - SERUM 1.8 mg/dL (1.8-2.4); TROPONIN-I 0.019 ng/mL (0.000-0.060)
[2018-06-06] MEDS ORDERED: MECLIZINE HCL25 MG PO (20:30)
[2018-06-06 20:54] LABS: APPEARANCE CLEAR (CLEAR); BILIRUBIN NEGATIVE (NEGATIVE); COLOR YELLOW (YELLOW); GLUCOSE NEGATIVE (NEGATIVE); KETONE NEGATIVE (NEGATIVE); NITRITE NEGATIVE (NEGATIVE); PROTEIN NEGATIVE (NEGATIVE); UROBILINOGEN NORMAL (NORMAL)
[2018-06-06 21:35] VITALS: BP 152/74
== END 2018-06-06 21:35 | disposition home or self-care (01) ==
LOC: D.ER 15:10
PROVIDERS: Family Medicine
DX: R42 Dizziness and giddiness (principal); R51 Headache; I25.10 Atherosclerotic heart disease of native coronary artery without angina pectoris; H81.09 Meniere's disease, unspecified ear; I10 Essential (primary) hypertension; I73.9 Peripheral vascular disease, unspecified; R00.1 Bradycardia, unspecified; I49.3 Ventricular premature depolarization; I45.10 Unspecified right bundle-branch block

== ENCOUNTER → 2018-12-12 09:13 | Outpatient (CLI) | payer OTHER ==
[2018-06-06 15:45] VITALS: BMI 26.3
[~2018-12-12 09:13] MED LIST changes: +COZAAR50 MG PO; +MECLIZINE HCL25 MG PO
== END | disposition home or self-care (01) ==
LOC: D.CT 09:13
DX: R10.31 Right lower quadrant pain (principal)

== ENCOUNTER 2018-12-25 10:21 | Outpatient (CLI) | payer OTHER ==
[~2018-12-25] VITALS: Ht 177.8 cm; Wt 86.4 kg
--- NOTE | ~2018-12-25 | OP ---
PATIENT NAME: HARRISON MARTINES MEDICAL RECORD: [id number] :38 LOCATION:D.CAT ADMISSION DATE: SURGEON: MADELINE HARRIS MD DATE OF OPERATION: 12/25/2018 DATE OF SERVICE: 12/25/2018 PROCEDURES: 1. PTCA stent vein graft to RCA. 2. PTCA stent vein graft to left circumflex. 3. Intravascular ultrasound vein graft to RCA. 4. Intravascular ultrasound vein graft to circumflex. 5. Left heart catheterization. 6. Selective coronary angiography. 7. Vein graft angiography. 8. STRANGE angiography. INDICATION: Angina and coronary artery disease. PROCEDURE IN DETAIL: After informed consent was obtained and after detailed description of risks, benefits as well as alternative therapies, the patient elected to proceed with angiogram and angioplasty. The right femoral area was prepped and draped in normal sterile fashion. Right femoral artery was cannulated via modified Seldinger technique with placement of 6-Kazakh sheath. All catheters exchanged through this sheath. FINDINGS: Left ventriculogram was performed in standard 30-degree MENDEZ view reveals preserved cardiac wall motion, ejection fraction 50%. SELECTIVE CORONARY ANGIOGRAPHY: 1. Left main is with no significant angiographic disease. 2. Left anterior descending is closed in the mid vessel. 3. STRANGE to the LAD is widely patent. Distal LAD is small and diffusely diseased, but widely patent. 4. Circumflex is closed. 5. Vein graft to the circumflex is patent. There is a previously placed stent in the mid shaft, intravascular ultrasound reveals there is greater than 80% in-stent restenosis at this area. 6. Vein graft to the RCA is patent. The RCA itself was closed. The vein graft to the RCA has 80% stenosis proximally confirmed by intravascular ultrasound. PTCA STENT OF THE VEIN GRAFT TO THE CIRCUMFLEX: The stent used was a 4.0 x 30 mm Integrity. Result was 0% residual stenosis. PTCA STENT OF THE VEIN GRAFT TO THE RCA: The stent used was a 4.0 x 22 mm Integrity. Result was 0% residual stenosis. OVERALL IMPRESSION: Successful percutaneous transluminal coronary angioplasty stent of the vein graft to the right coronary artery and the vein graft and circumflex, both going from 80% initial stenosis to 0% residual. TRANSINT:[id number] Voice Confirmation ID: [id number] DOCUMENT ID: [id number] OPERATIVE REPORT [id number] MARTINES,MADELINE VACA MD CC: [id number] DICTATION DATE: 12/25/18 1313 BUSINESS BANKING SALES ASSISTANT: 12/25/18 1425 REG [facility] [address] [place] [id number]
--- NOTE | ~2018-12-25 | OP ---
PATIENT NAME: HARRISON MARTINES MEDICAL RECORD: [id number] :38 LOCATION:D.CAT ADMISSION DATE: SURGEON: MADELINE HARRIS MD DATE OF OPERATION: 12/25/2018 DATE OF SERVICE: 12/25/2018 PROCEDURE: DC cardioversion. INDICATION: Atrial fibrillation. IV conscious sedation was per anesthesia. Continuous heart rate, O2 saturation, blood pressure monitoring all undertaken, all of which remains stable. He received 1 shock at 275 joules restoring sinus rhythm. TRANSINT:[id number] Voice Confirmation ID: [id number] DOCUMENT ID: [id number] MADELINE HARRIS MD CC: [id number] DICTATION DATE: 12/25/18 1313 STEAM CLEANING MACHINE OPERATOR: 12/25/18 1424 REG [facility] [address] [place] [id number]
--- NOTE | ~2018-12-25 | OP ---
PATIENT NAME: HARRISON MARTINES MEDICAL RECORD: [id number] :38 LOCATION:D.CAT ADMISSION DATE: SURGEON: MADELINE HARRIS MD DATE OF OPERATION: 12/25/2018 PROCEDURES: 1. Aortofemoral runoff. 2. Abdominal aortography. INDICATION: Claudication and peripheral vascular disease. PROCEDURE IN DETAIL: After informed consent was obtained and after a detailed description of the risks, benefits as well as alternative therapies, the patient elected to proceed with angiogram and aortofemoral runoff. The right femoral area had a preexisting sheath from cardiac intervention. All catheters exchanged through this sheath. FINDINGS: Abdominal aortography was performed. The catheter was pulled down for aortofemoral runoff. Abdominal aortography reveals no significant abdominal aortic disease, no dissection or annulus formation. RIGHT LEG: A. Iliac: The common internal and external iliacs have mild irregularities, but no flow-limiting stenosis. B. Femoral system: The common and deep femoral are widely patent. Superficial femoral has a previously placed stent with up to 90% in-stent restenosis just after the stent and there is 95% stenosis. The remainder of the SFA has only moderate irregularities. C. Popliteal and infrapopliteal vessels are patent with good 3-vessel runoff to the foot. LEFT LEG: A. Iliac: The common internal and external iliacs have moderate irregularities, but no flow-limiting stenosis. B. Femoral system: The common and deep femoral are widely patent. Superficial femoral has a previously placed stent. This is as well widely patent. C. Popliteal and infrapopliteal vessels are widely patent with good 3-vessel runoff to the foot. 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 TRANSINT:[id number] Voice Confirmation ID: [id number] DOCUMENT ID: [id number] MADELINE HARRIS MD CC: [id number] DICTATION DATE: 12/25/18 1313 JIG BORING MACHINE SET UP OPERATOR: 12/25/18 1423 REG [facility] [address] [place] [id number]
--- NOTE | ~2018-12-25 | HEMODYNAMI ---
PATIENT:HARRISON MARTINES MEDICAL RECORD: [id number] : 38 LOCATION:D.CAT ADMISSION DATE: 12/25/18 Generatedon:12/25/201813:16 Patient name: HARRISON MARTINES Patient #: [id number] SSN: : 1940 Date of study: 12/25/2018 Page: Of Hemodynamic Procedure Report Patient Data Patient Demographics Procedure consent was obtained First Name: HARRISON Gender: Male Last Name: BOBBI : 1940 [facility] Initial: R Age: 78 year(s) Patient #: [id number] Race: Additional ID: [id number] Contact details [address]: [address] [place] [address] State: [place] City: [place] Zip code: [address] Past Medical History History of disease Date Diagnosis Comments PVD Allergies Allergen Reaction Date Comments Reported Codeine 05/07/2015 Other allergy 08/03/2016 Codeine Other allergy 01/03/2018 Codeine, Iodine Admission Admission Data Admission Date: 12/25/2018 Admission Time: 10:21 Height (in.): 62 BSA: 1.9 (m2) Height (cm.): 157.48 BMI: 35.85 (kg/m2) Weight (lbs.): 196 Weight (kg.): 88.9 Procedure Procedure Types Cath Procedure Diagnostic Procedure [facility] w/Coronaries w/Grafts FFR/IVUS Intra-Coronary IVUS Initial Intra-Coronary IVUS Additional Cardioversion External PCI Procedure AMI/SVG/ASSISTANT PLANT MANAGER PTCA or Stent SVG-BMS/REILLY Initial Procedure Description Procedure Date Procedure Date: 12/25/2018 Procedure Start Time: 12:37 Procedure End Time: 13:05 Procedure Staff Name Function Jennifer Danielle RT Monitor Nahun Fatima RN Legal Referee Aleksander Clark MD Additional personnel Jason Boyd MD Performing Physician Bel Aragon RT Scrub Robert Preston RN Nurse Procedure Data Cath Procedure Fluoroscopy Diagnostic fluoroscopy Total fluoroscopy Time: 6.8 time: 6.8 min min Diagnostic fluoroscopy Total fluoroscopy dose: 674 dose: 674 mGy mGy Contrast Material Contrast Material Type Amount (ml) Isovue 300 142 Entry Location Entry Primary Successful Side Size Upsize Upsize Entry Closure Succes sful Closure Location (Fr) 1 (Fr) 2 (Fr) Remarks Device Remarks Femoral Right 5 Fr 6 Fr Exoseal artery Short Estimated blood loss: 5 ml Diagnostic catheters Device Type Used For End Catheter Placement MULTIPACK Pigtail 5 Fr Multi-vessel catheter Angiography MULTIPACK JL 4.0 5Fr Left Coronary catheter Angiography MULTIPACK 3DRC 5Fr Right Coronary catheter Angiography DIAGNOSTIC AR2 MOD 5 Fr Multi-vessel catheter ([id number]) Angiography Procedure Complications No complications Procedure Medications Medication Administration Route Dosage 0.9% NaCl I.V. 100 ml/hr Oxygen etCO2 Nasal cannula 2 l/min Heparin Flush Bag added to field 2 bags (1000units/500ml NS) Lidocaine 2% added to field 20 Refer to Anesthesia Notes for Sedation Medications Heparin Bolus I.V. 4000 units Integrilin (Bolus I.V. 7.9 ml 2mg/ml) Integrilin (Bolus wasted 2.1 ml 2mg/ml) Plavix P.O. 600 mg Hemodynamics Rest BSA: 1.9 (m2) O2 Consumption: Estimated: 230.23 (ml/min) O2 Consumption indexed: Estimated:121.17 (ml/min/m) Heart Rate: 88 (bpm) Pressure Samples Time Site Value (mmHg) Purpose Heart Use Rate(bpm) 12:40 LV 101/6,11 Snapshot 96 Snapshots Pre Cath Intra NCS Post Cath Vital Signs Time Heart Resp SPO2 etCO2 NIBP (mmHg) Rhythm Pain Sedation Rate (ipm) (%) (mmHg) Status Level (bpm) 12:24:29 82 11 100 32.6 144/76(110) NSR 0 (11) 10(A) , No pain 12:28:45 93 17 99 31.8 151/69(105) NSR 0 (11) 10(A) , No pain 12:33:07 76 22 99 25 151/55(113) NSR 0 (11) 10(A) , No pain 12:37:25 75 15 99 22.7 140/72(98) NSR 0 (11) 9(A) , No pain 12:41:37 98 15 96 25 122/52(83) NSR 0 (11) 8(A) , No pain 12:45:52 74 14 98 31.1 108/48(77) NSR 0 (11) 8(A) , No pain 12:49:58 90 14 94 33.3 88/56(71) NSR 0 (11) 8(A) , No pain 12:54:02 83 13 97 22 90/42(60) NSR 0 (11) 8(A) , No pain 12:58:06 82 14 98 20.5 92/43(60) NSR 0 (11) 10(A) , No pain 13:11:33 90 13 97 7.5 121/62(90) NSR 0 (11) 8(A) , No pain Medications Time Medication Route Dose Verified Delivered Reason Notes Effectiveness by by 12:22:12 0.9% NaCl I.V. 100 Robert Robert Per physician ml/hr Kary Preston RN RN 12:22:21 Oxygen etCO2 2 Robert Robert for low 02 sats Nasal l/min Kary Preston cannula RN RN 12:22:31 Heparin Flush added 2 Robert Robert used for Bag to bags Kary Preston procedure (1000units/500ml field RN RN NS) 12:22:41 Lidocaine 2% added 20ml Robert Robert for local to vial Kary Preston anesthetic field RN RN 12:36:37 Refer to Robert Robert for sedation Anesthesia Notes Kary Preston for Sedation RN RN Medications 12:51:49 Heparin Bolus I.V. 4000 Robert Robert for units Kary Preston anticoagulation RN RN 12:52:19 Integrilin I.V. 7.9 Robert Robert for (Bolus 2mg/ml) ml Kary Preston antiplatelet RN RN therapy 12:52:30 Integrilin wasted 2.1 Robert Robert to sharp's (Bolus 2mg/ml) ml Kary Preston RN RN 13:07:38 Plavix P.O. 600 Robert Robert for mg Kary Preston antiplatelet RN RN therapy Procedure Log Time Note 12:00:28 Patient Height : 62 inches 12:00:41 Patient Weight : 196 lbs 12:03:54 Diagnostic Cath status Elective 12:03:57 Nahun Fatima RN sent for patient. Start room use. 12:03:58 Time tracking: Regular hours (M-F 7:00 - 5:00) 12:04:04 Plan of Care:Hemodynamics will remain stable., Cardiac rhythm will remain stable., Comfort level will be maintained., Respiratory function will remain adequate., Patient/ family verbilizes understanding of procedure., Procedure tolerated without complication., Recovers from procedure without complications.. 12:14:10 Patient received from Pre/Post Procedure Room to [facility] 2 Alert and oriented. Tansferred to table in Supine position. 12:14:11 Warm blankets applied, and mendel hugger turned on for patient comfort. 12:14:12 Correct patient and procedure confirmed by team. 12:14:13 Signed procedure consent form obtained from patient. 12:14:14 ECG and BP/O2 sat monitors applied to patient. 12:22:12 0.9% NaCl 100 ml/hr I.V. was administered by Robert Preston RN; Per physician; 12:22:21 Oxygen 2 l/min etCO2 Nasal cannula was administered by Robert Preston RN; for low 02 sats; 12:22:31 Heparin Flush Bag (1000units/500ml NS) 2 bags added to field was administered by Robert Preston RN; used for procedure; 12:22:41 Lidocaine 2% 20ml vial added to field was administered by Robert Preston RN; for local anesthetic; 12:23:17 Vital chart was started 12:23:17 Baseline sample Acquired. 12:23:24 Rhythm: sinus rhythm 12:23:26 Full Disclosure recording started 12:23:30 H&P Date Dictated: 12/25/2018 Within 30 days and on chart., H&P Addendum completed by physician on day of procedure. (MUST COMPLETE FOR ALL OUTPATIENTS). 12:23:32 Pre-procedure instructions explained to patient. 12:23:33 Pre-op teaching completed and patient verbalized understanding. 12:23:34 Family in waiting room. 12:23:35 Patient NPO since Midnight. 12:23:36 Is the patient allergic to Iodine/contrast media? No. 12:23:37 Was the patient premedicated? No 12:23:39 Is patient on blood thinner?Yes 12:23:42 ACC The patient was administered the following blood thiners within the last 24 hours: Xarelto 12:23:44 Patient diabetic? No. 12:23:47 Previous problem with sedation/anesthesia? No ? 12:23:49 Sleep apnea? No 12:23:49 Snore? Yes 12:23:50 Deviated septum? No 12:23:51 Sticks out tongue? Yes 12:23:51 Opens mouth fully? Yes 12:23:53 Airway obstruction? No ? 12:23:56 Dentures? No ? 12:26:58 Pre procedure: right dorsailis pedis pulse 1+ Palpable, but thready & weak; easily obliterated 12:27:01 Pre procedure: left dorsailis pedis pulse 1+ Palpable, but thready & weak; easily obliterated 12:27:04 Patient pain scale 0/10 ?. 12:27:09 IV patent on arrival in left forearm with 0.9% NaCl at [facility]. 12:27:11 Lab results completed and on chart. 12:27:16 Alarms reviewed by R. N. 12:27:16 Right groin area was prepped with chlora-prep and draped in sterile fashion 12:27:17 Sharps counted by scrub and verified by R.N. 12:30:20 Zero performed for pressure channel P1 12:34:20 Aleksander Clark MD present and monitoring patient for TIVA. 12:34:23 Quick combo pads placed on patients chest and back. 12:34:39 Physician paged 12:34:40 Final Timeout: patient, procedure, and site verified with staff and physician. All members of the team are in agreement. 12:34:40 --------ALL STOP TIME OUT------ 12:34:42 Right groin site verified by team. 12:34:46 Fire Safety Assessment: A--An alcohol-based skin anteseptic being used preoperatively., B--The operative or invasive procedure is being performed above the xiphoid process or in the oropharynx., C--Open oxygen or nitrous oxide is being used., D--An ESU, laser, or fiber-optic light is being used., E--There are other possible contributors. 12:34:50 Physical assessment completed. ASA score P 2 - A patient with mild systemic disease as per Jason Boyd MD. 12:34:54 Sedation plan: TIVA Medication:Propofol 12:34:58 Use device set Femoral Dx 12:34:59 ACIST Syringe (70224) opened to sterile field. 12:35:00 Medline Cath Pack ([id number]) opened to sterile field. 12:35:00 Bag Decanter (2002S) opened to sterile field. 12:35:01 DIAGNOSTIC WIRE .035 260cm J wire (768916) opened to sterile field. 12:35:02 ACIST Hand Control (15247) opened to sterile field. 12:35:03 DIAGNOSTIC Multipack 5Fr catheter set (YS0920) opened to sterile field. 12:35:03 ACIST Manifold (22177) opened to sterile field. 12:35:04 Tegaderm 4 x 4 (1626W) opened to sterile field. 12:35:05 SHEATH 5FR Girard (WXN536) opened to sterile field. 12:36:37 Refer to Anesthesia Notes for Sedation Medications was administered by Robert Preston RN; for sedation; 12:37:47 Procedure started. 12:37:51 Local anesthetic to right femoral artery with Lidocaine 2% by Jason Boyd MD.INITIAL ACCESS ONLY 12:38:01 A 5 Fr sheath was inserted into the Right Femoral artery 12:40:10 A MULTIPACK Pigtail 5 Fr catheter was advanced over the wire and used for Multi-vessel Angiography. 12:40:36 LV hemodynamics recorded. 12:40:37 LV gram done using MENDEZ 12:40:40 Injector settings: Ml/sec: 5, Volume: 15, 12:40:45 EF : 40 % 12:40:56 Abdominal angiogram w/ runoff was performed. 12:42:18 Catheter removed. 12:42:24 A MULTIPACK JL 4.0 5Fr catheter was advanced over the wire and used for Left Coronary Angiography. 12:42:33 LCA angiography performed. 12:42:53 Injector settings: Ml/sec: 3, Volume: 6, 12:43:23 Catheter removed. 12:43:27 A MULTIPACK 3DRC 5Fr catheter was advanced over the wire and used for Right Coronary Angiography. 12:43:46 STRANGE angiography performed. 12:44:13 RCA angiography performed. 12:44:16 Injector settings: Ml/sec: 3, Volume: 6, 12:44:35 Catheter removed. 12:45:29 A DIAGNOSTIC AR2 MOD 5 Fr catheter ([id number]) was advanced over the wire and used for Multi-vessel Angiography. 12:45:48 SVG to Circ angiography performed. 12:45:58 SVG to RCA angiography performed. 12:46:52 Catheter removed. 12:46:54 Proceeding to intervention. 12:47:03 SHEATH 6FR Girard (AEQ550) opened to sterile field. 12:47:27 Sheath upsized to a 6 Fr Short. 12:48:43 CHOICE PT Extra Support 182cm wire ([id number]) opened to sterile field. 12:48:44 INFLATOR Merit BasixCompak (KI5334) opened to sterile field. 12:49:35 GUIDE 6FR AR 2.0 SH catheter ([id number]) opened to sterile field. 12:49:43 6 Fr ar 2 sh guide catheter was inserted over the wire 12:49:51 choice pt wire advanced. 12:50:02 [place] Eagley[place] IVUS Catheter (00096W) opened to sterile field. 12:51:06 Wire advanced across lesion. 12:51:08 IVUS catheter advanced over wire. 12:51:49 Heparin Bolus 4000 units I.V. was administered by Robert Preston RN; for anticoagulation; 12:52:19 Integrilin (Bolus 2mg/ml) 7.9 ml I.V. was administered by Robert Preston RN; for antiplatelet therapy; 12:52:30 Integrilin (Bolus 2mg/ml) 2.1 ml wasted was administered by Robert Preston RN; to sharp's; 12:53:27 IVUS pass to Circ lesion performed. 12:53:36 IVUS catheter removed over wire. 12:55:50 Place stent Inflation Number: 1 A INTEGRITY RX 4.0 x 30 stent ([id number]) was prepped and advanced across the Aorta Left -> Mid CX. The stent was deployed at 19 AARON for 0:10 (min:sec). 12:56:49 Stent catheter was removed intact over wire. 12:56:50 Wire removed. 12:57:17 ar 2 sh guide directed down [id number] 12:57:23 choice pt wire advanced. 12:57:24 Wire advanced across lesion. 12:57:29 IVUS catheter advanced over wire. 12:59:58 IVUS pass to RCA lesion performed. 13:00:00 IVUS catheter removed over wire. 13:00:38 Inflate balloon Inflation number: 1 A INTEGRITY RX 4.0 x 22 stent ([id number]) was prepped and advanced across the Aorta Right -> Dist RCA, then inflated to 19 AARON for 0:10 (min:sec). 13:00:44 Stent catheter was removed intact over wire. 13:00:45 Wire removed. 13:00:46 Guide catheter removed. 13:00:53 Defibrillator synced and charged to 200 Joules. 13:00:55 Shock delivered. 13:01:22 Patient cardioverted to sinus rhythm . 13:01:47 EXOSEAL 6Fr (EX600) opened to sterile field. 13:02:00 Sheath removed intact; hemostasis achieved with Exoseal to the Right Femoral artery. 13:02:02 Procedure ended.(Physican Out) 13:03:08 Fluoroscopy time 06.80 minutes. 13:03:15 Fluoroscopy dose: 674 mGy 13:03:15 Flurop Dose total: 674 13:03:59 Contrast amount:Isovue 300 142ml. 13:04:01 Sharps counted by scrub and verified by R.N. 13:04:06 Insertion/operative site no bleeding no hematoma. 13:04:09 Post-op/insertion site Right Femoral artery dressed using a 4 x 4 and Tegaderm. 13:04:12 Post right femoral artery:stable 13:04:13 Post Procedure Pulses reassessed and unchanged 13:04:16 Post procedure rhythm: sinus rhythm 13:04:18 Estimated blood loss: 5 ml 13:04:20 Patient needs reinforcement of post procedure teaching. 13:04:20 Post procedure instruction explained to patient.Patient verbalizes understanding. 13:05:03 Procedure type changed to Cath procedure, Diagnostic procedure, LHC, LHC w/Coronaries w/Grafts, FFR/IVUS, Intra-Coronary IVUS Initial, Intra-Coronary IVUS Additional, Cardioversion External, PCI procedure, AMI/SVG/ASSISTANT PLANT MANAGER PTCA or Stent, SVG-BMS/REILLY Initial 13:05:06 Procedure and supply charges have been captured, reviewed, submitted and are correct. 13:05:10 Procedure Complication : No complications 13:05:12 See physician's report for complete and final results. 13:05:12 Vital chart was stopped 13:05:26 Report given to Pre/Post Procedure Room. 13:05:30 Patient transfered to Pre/Post Procedure Room with Stretcher. 13:05:32 Full Disclosure recording stopped 13:05:32 Procedure ended. 13:05:40 ACC-PCI Only Patient was given prescriptions, or instructed by Jason Boyd MD to start/continue the following medications upon discharge: Plavix 13:05:41 End room use (Document Last) 13:07:38 Plavix 600 mg P.O. was administered by Robert Preston RN; for antiplatelet therapy; Intervention Summary Intervention Notes Time ActionType Lesion and Equipment Action# Pressure Duration Attributes Used 12:55:50 Place stent Aorta Left INTEGRITY RX 1 19 00:10 -> Mid CX 4.0 x 30 stent ([id number]) 13:00:38 Inflate Aorta Right INTEGRITY RX 1 19 00:10 balloon -> Dist RCA 4.0 x 22 stent ([id number]) Device Usage Item Name Manufacture Quantity Catalog Number Hospital Part Current Mini mal Lot# / Charge Number Stock Stock Serial# Code ACIST Acist 1 35033 178007 066060 942611 20 Syringe Medical (61000) Systems Inc Bag Decanter Microtek 1 2001S 340809 86280 764881 5 (2001S) Medical Inc. Medline Cath Medline 1 [id number] 540150 04662 382681 5 Pack ([id number]) DIAGNOSTIC St Emigdio 1 745746 384666 318987 830056 30 WIRE .035 260cm J wire (398609) ACIST Hand Acist 1 52073 057758 550156 330023 5 Control Medical (20633) Systems Inc ACIST Acist 1 46548 573802 858547 531936 5 Manifold Medical (98347) Systems Inc DIAGNOSTIC Cardinal 1 DO3949 658941 25105 869900 30 Multipack Health 5Fr catheter set (RA9138) Tegaderm 4 x 3M 1 1626W 682416 538091 646365 5 4 (1626W) SHEATH 5FR Terumo 1 NWA451 744247 039867 528366 5 Girard (RLM509) MULTIPACK Cardinal 1 924233 5 Pigtail 5 Fr Health catheter MULTIPACK JL Cardinal 1 699651 5 4.0 5Fr Health catheter MULTIPACK Cardinal 1 405402 5 3DRC 5Fr Health catheter DIAGNOSTIC Cardinal 1 [id number] 910383 102856 717136 20 AR2 MOD 5 Fr Health catheter (232506U) SHEATH 6FR Terumo 1 FVJ501 883582 304576 331972 40 Girard (KUV528) CHOICE PT Pansey 1 [id number] 784561 041320 327006 5 Extra Scientific Support 182cm wire ([id number]) INFLATOR Merit 1 EF6517 170335 048126 224469 15 [facility] Medical BasixCompak (LI2836) GUIDE 6FR AR Medtronic 1 [id number] 173279 80686 126551 1 2.0 SH catheter ([id number]) [place] 1 22202R 725579 182738 187201 8 [place] Eagley[place] IVUS Catheter (00160S) INTEGRITY RX Medtronic 1 [id number] 060734 041726 268800 5 [id number] 4.0 x 30 stent ([id number]) INTEGRITY RX Medtronic 1 [id number] 071297 136141 015635 5 [id number] 4.0 x 22 stent ([id number]) EXOSEAL 6Fr Cardinal 1 EX600 885880 565128 466336 10 (EX600) Health Signature Audit [place] Stage Time Signature Unsigned Intra-Procedure 12/25/2018 Jennifer Danielle RT(R) 1:12:49 PM RT(R) 12/25/2018 1:15:28 PM Intra-Procedure 12/25/2018 Jennifer Danielle 1:16:37 PM RT(R) Signatures Monitor : Jennifer Danielle RT Signature : Date : Time : [facility] [address] [place], [place] [address]
[2018-12-25] MEDS ORDERED: AMIODARONE HCL200 MG PO (10:38)
[2018-12-25] MEDS ORDERED: XARELTO10 MG PO (10:39)
[2018-12-25 10:45] VITALS: BP 94/67; Ht 177.8 cm; Wt 86.4 kg
[2018-12-25 11:03] LABS: BASOPHILS 0.7 % (0-2); EOSINOPHILS 3.4 % (0-7); HEMATOCRIT 39.3 % (42.0-54.0); HEMOGLOBIN 13.2 g/dL (13.5-17.5); IMMATURE GRANULOCYTES 0.4 % (0-5); LYMPHOCYTES 29.5 % (15-50); MCH 30.4 pg (26.0-34.0); MCHC 33.6 g/dL (31.0-37.0); MCV 90.6 fL (80.0-100.0); MONOCYTES 10.8 % (2-11); NEUTROPHILS 55.2 % (40-80); RBC 4.34 10x6/uL (4.20-6.10); RDW 13.7 % (11.5-14.5); WBC 10.9 10x3/uL (4.8-10.8)
[2018-12-25 11:06] LABS: PLATELET COUNT 373 10x3/uL (130-400)
[2018-12-25 11:07] LABS: INR 1.18 (0.85-1.17); PROTIME 14.5 SECONDS (11.6-15.0)
[2018-12-25 11:08] LABS: ANION GAP 16.8 mmol/L (8-16); CALCIUM 9.1 mg/dL (8.5-10.1); CARBON DIOXIDE 23.9 mmol/L (21.0-32.0); CREATININE - SERUM 1.6 mg/dL (0.6-1.3); POTASSIUM - SERUM 4.7 mmol/L (3.5-5.1)
[2018-12-25] MEDS ORDERED: PLAVIX75 MG PO ×2 (13:34→13:35)
[2018-12-25] MEDS ORDERED: BAYER CHEWABLE81 MG PO (13:34)
--- NOTE | 2018-12-25 13:39 | NUR ---
RECIEVED TO ROOM VIA STRETCHER FROM PARAPLANNER WITH 6 FR EXOSEAL R/GROIN CDI NO BLEEDING OR HEMATOMA NOTED. R/FOOT IS WARM TO TOUCH WITH PULSES PALPABLED. INSTRUCTED PATIENT TO KEEP HEAD FLAT ON PILLOW WITH RLE STRAIGHT
--- NOTE | 2018-12-25 13:56 | NUR ---
6 FR EXOSEAL R/GROIN REMAINS CDI WITH NO BLEEDING OR HEMATOMA NOTED. PATIENT DENIED PAIN OR NEEDS AT THIS TIME CALL LIGHT IN REACH WITH BED IN LOCKED POSITION. FAMILY IS PRESENT AT BEDSIDE
--- NOTE | 2018-12-25 14:30 | NUR ---
6 FR EXOSEAL R/GROIN IS CDI WITH NO BLEEDING OR HEMATOMA NOTED. PATIENT DENIED PAIN OR NEEDS CALL LIGHT IN REACH WITH FAMILY AT BEDSIDE
--- NOTE | 2018-12-25 14:42 | NUR ---
RESTING QUIETLY NO DISTRESS. 6 FR EXOSEAL R/GROIN IS CDI CALL LIGHT IS IN REACH
--- NOTE | 2018-12-25 14:52 | NUR ---
PATIENT CONTINUES TO REST WITH NO DISTRESS NOTED. VSS AND R/GROIN IS CDI
--- NOTE | 2018-12-25 15:12 | NUR ---
6 FR EXOSEAL R/GROIN REMAINS CDI WITH NO BLEEDING OR HEMATOMA NOTED. VSS AND CHEST PAIN IS DENIED
--- NOTE | 2018-12-25 15:55 | NUR ---
PATIENT VOIDS TO COLLECTION JACINTA CARE PROVIDED. R/GROIN REMAINS CDI NO BLEEDING OR HEMATOMA NOTED. REPOSITIONED HOB UP 20 FOR COMFORT
--- NOTE | 2018-12-25 16:20 | NUR ---
HEAD OF BED ELEVATED TO 45 DEGREES, RIGHT GROIN DRESSING IS CDI, NO S/S OF BLEEDING OR HEMATOMA. NO C/O PAIN, NUMBNESS, OR TINGLING. VSS. PATIENT EATING SANDWICH AND DRINKING WATER, NO N/V.
--- NOTE | 2018-12-25 16:50 | NUR ---
PATIENT AWAKE, IV REMOVED. HEAD OF BED AT 90 DEGREES. RIGHT GROIN DRESSING IS CDI,NO S/S OF BLEEDING OR HEMATOMA. NO C/O PAIN, NUMBNESS, OR TINGLING. VSS ON ROOM AIR. EDUCATION GIVEN TO PATIENT AND FAMILY REGARDING DISCHARGE INSTRUCTIONS AND MEDICATIONS, ALL QUESTIONS ANSWERED, PATIENT VOICED UNDERSTANDING.
--- NOTE | 2018-12-25 17:00 | NUR ---
PATIENT TRANSPORTED VIA WHEELCHAIR TO BATHROOM - VOIDED WITHOUT DIFFICULTY. PATIENT TRANSPORTED TO CAR WITH FAMILY DRIVING, ALL BELONGINGS WITH PATIENT.
== END 2018-12-25 17:00 ==
LOC: D.CATH 10:21
PROVIDERS: ATTEND Internal Medicine Interventional Cardiology
DX: I25.719 Atherosclerosis of autologous vein coronary artery bypass graft(s) with unspecified angina pectoris (principal); I25.119 Atherosclerotic heart disease of native coronary artery with unspecified angina pectoris; I70.211 Atherosclerosis of native arteries of extremities with intermittent claudication, right leg; I48.91 Unspecified atrial fibrillation; T82.855A Stenosis of coronary artery stent, initial encounter; Z01.812 Encounter for preprocedural laboratory examination

== ENCOUNTER → 2019-01-05 18:56 | Outpatient (CLI) | payer OTHER ==
[2018-12-25 10:45] VITALS: BMI 27.3
[~2019-01-05 18:56] MED LIST changes: +AMIODARONE HCL200 MG PO; +BAYER CHEWABLE81 MG PO; +XARELTO10 MG PO
== END | disposition home or self-care (01) ==
LOC: D.LABREF 18:56
PROVIDERS: ATTEND Urology
DX: D72.829 Elevated white blood cell count, unspecified (principal)

== ENCOUNTER 2019-08-03 09:25 | Outpatient (CLI) | payer OTHER ==
[~2019-08-03] VITALS: Ht 177.8 cm; Wt 84.1 kg
--- NOTE | ~2019-08-03 | HEMODYNAMI ---
PATIENT:HARRISON MARTINES MEDICAL RECORD: [id number] : 38 LOCATION:D.CAT ADMISSION DATE: 08/03/19 Generatedon:08/03/201913:04 Patient name: HARRISON MARTINES Patient #: [id number] SSN: : [id number] Date of study: 08/03/2019 Page: Of Hemodynamic Procedure Report Patient Data Patient Demographics Procedure consent was obtained First Name: HARRISON Gender: Male Last Name: BOBBI : 1940 [facility] Initial: R Age: 79 year(s) Patient #: [id number] Race: Additional ID: [id number] Contact details [address]: [address] [place] [address] State: [place] City: [place] Zip code: [address] Past Medical History History of disease Date Diagnosis Comments PVD Allergies Allergen Reaction Date Comments Reported Codeine 05/07/2015 Other allergy 08/03/2016 Codeine Other allergy 01/03/2018 Codeine, Iodine Codeine 08/03/2019 Admission Admission Data Admission Date: 08/03/2019 Admission Time: 9:25 Arrival Date: 08/03/2019 Arrival Time: 0:00 Height (in.): 70 BSA: 2.02 (m2) Height (cm.): 177.8 BMI: 26.57 (kg/m2) Weight (lbs.): 185.19 Weight (kg.): 84 Lab Results Lab Result Date: 08/03/2019 Lab Result Time: 0:00 Biochemistry Name Units Result Min Max Creatinine mg/dl 1 --(--*-)-- 0.6 1.3 eGFR ml/min 76.94031 *-(----)-- 90 120 NONAFRICAN Potassium mmol/l 18 --(----)-* 3.5 5.1 CBC Name Units Result Min Max Hematocrit % 40.9 -*(----)-- 42 54 Hemoglobin g/dl 13.4 -*(----)-- 13.5 17.5 Procedure Procedure Types Cath Procedure Peripheral Cath Diagnostic Procedure Service Dog Trainer Peripheral Procedures AFRO (Diagnostic) Procedure Description Procedure Date Procedure Date: 08/03/2019 Procedure Start Time: 12:53 Procedure End Time: 13:01 Procedure Staff Name Function Jason Boyd MD Performing Physician Pam Mendoza RT Monitor Bel Aragon RT Scrub Susy Macdonald RN Nurse Procedure Data Cath Procedure Fluoroscopy Diagnostic fluoroscopy Total fluoroscopy Time: 1.1 time: 1.1 min min Diagnostic fluoroscopy Total fluoroscopy dose: 129 dose: 129 mGy mGy Contrast Material Contrast Material Type Amount (ml) Isovue 300 62 Entry Location Entry Primary Successful Side Size Upsize Upsize Entry Closure Succes sful Closure Location (Fr) 1 (Fr) 2 (Fr) Remarks Device Remarks Femoral Left 5 Fr Exoseal artery Estimated blood loss: 5 ml Diagnostic catheters Device Type Used For End Catheter Placement DIAGNOSTIC UF 5Fr Procedure catheter ([id number]) Procedure Complications No complications Procedure Medications Medication Administration Route Dosage 0.9% NaCl I.V. 100 ml/hr Oxygen etCO2 Nasal cannula 2 l/min Lidocaine 2% added to field 20 Heparin Flush Bag added to field 2 bags (1000units/500ml NS) Versed I.V. 2 mg Fentanyl I.V. 50 mcg Hemodynamics Rest BSA: 2.02 (m2) HGB: 13.4 (g/dl) O2 Consumption: Estimated: 274.72 (ml/min) O2 Co nsumption indexed: Estimated:136 (ml/min/m) Heart Rate: 0 (bpm) Snapshots Pre Cath Intra NCS Post Cath Vital Signs Time Heart Resp SPO2 etCO2 NIBP (mmHg) Rhythm Pain Sedation Rate (ipm) (%) (mmHg) Status Level (bpm) 12:37:00 75 16 98 32 133/80(116) NSR 0 (11) 10(A) , No pain 12:41:09 71 19 98 40 134/70(101) NSR 0 (11) 10(A) , No pain 12:45:23 62 17 98 12.8 116/58(107) NSR 0 (11) 10(A) , No pain 12:49:29 80 18 98 36.2 112/63(91) NSR 0 (11) 10(A) , No pain 12:53:35 70 19 98 12.8 128/63(97) NSR 0 (11) 9(A) , No pain 12:57:45 70 13 98 36.9 124/66(96) NSR 0 (11) 10(A) , No pain Medications Time Medication Route Dose Verified Delivered Reason Notes Eff ectiveness by by 12:38:05 0.9% NaCl I.V. 100 Jason Susy used for ml/hr Deb Macdonald ccie 12:38:11 Oxygen etCO2 2 Jason Susy used for Nasal l/min Deb Macdonald procedure cannula RN 12:38:16 Lidocaine 2% added 20ml Jason Jason for local to vial Deb Boyd MD anesthetic field 12:38:20 Heparin Flush added 2 Jason Jason used for Bag to bags Deb Boyd MD procedure (1000units/500ml field NS) 12:52:13 Versed I.V. 2 mg Jason Susy for eDb Macdonald sedation RN 12:52:24 Fentanyl I.V. 50 Jason Susy for mcg Deb Macdonald sedation level designer Log Time Note 12:21:34 Procedure Status Elective Heart Cath (OP). 12:21:36 Susy Macdonald RN sent for patient. Start room use. 12:21:36 Time tracking: Regular hours (M-F 7:00 - 5:00) 12:21:39 Plan of Care:Hemodynamics will remain stable., Cardiac rhythm will remain stable., Comfort level will be maintained., Respiratory function will remain adequate., Patient/ family verbilizes understanding of procedure., Procedure tolerated without complication., Recovers from procedure without complications.. 12:21:40 Signed procedure consent form obtained from patient. 12:21:47 H&P Date Dictated: 07/26/2019 Within 30 days and on chart., H&P Addendum completed by physician on day of procedure. (MUST COMPLETE FOR ALL OUTPATIENTS). 12:21:52 Patient allergic to Codeine 12:22:14 Patient Weight : 185.19 lbs 12:22:20 Arrival Date: 08/03/2019 12:00:00 AM 12:22:39 Patient Height : 70 inches 12:23:08 Lab Result : Hematocrit 40.9 % 12:23:08 Lab Result : eGFR NONAFRICAN 76.20252 ml/min 12:23:08 Lab Result : Hemoglobin 13.4 g/dl 12:23:08 Lab Result : Potassium 18 mmol/l 12:23:08 Lab Result : Creatinine 1 mg/dl 12:29:03 Patient received from Pre/Post Procedure Room to CCL 1 Alert and oriented. Tansferred to table in Supine position. 12:29:04 Warm blankets applied, and mendel hugger turned on for patient comfort. 12:29:04 Correct patient and procedure confirmed by team. 12:29:05 ECG and BP/O2 sat monitors applied to patient. 12:35:56 Vital chart was started 12:36:44 Baseline sample Acquired. 12:36:52 Rhythm: atrial fibrillation 12:36:56 Full Disclosure recording started 12:37:00 Pre-procedure instructions explained to patient. 12:37:03 Family in waiting room. 12:37:07 Patient NPO since Midnight. 12:37:14 Is the patient allergic to Iodine/contrast media? No. 12:38:05 0.9% NaCl 100 ml/hr I.V. was administered by Susy Macdonald RN; used for procedure; Verbal order read back and verified. 12:38:11 Oxygen 2 l/min etCO2 Nasal cannula was administered by Susy Macdonald RN; used for procedure; Verbal order read back and verified. 12:38:16 Lidocaine 2% 20ml vial added to field was administered by Jason Boyd MD; for local anesthetic; Verbal order read back and verified. 12:38:20 Heparin Flush Bag (1000units/500ml NS) 2 bags added to field was administered by Jason Boyd MD; used for procedure; Verbal order read back and verified. 12:39:31 Is patient on blood thinner?No 12:39:32 Patient diabetic? No. 12:39:35 Previous problem with sedation/anesthesia? No ? 12:39:36 Snore? Yes 12:39:38 Sleep apnea? No 12:39:39 Deviated septum? No 12:39:40 Opens mouth fully? Yes 12:39:42 Sticks out tongue? Yes 12:39:44 Airway obstruction? No ? 12:39:47 Dentures? No ? 12:39:50 Pre procedure: right dorsailis pedis pulse Doppler 12:39:53 Pre procedure: left dorsailis pedis pulse 2+ Normal; easily identifiable; not easily obliterated 12:39:56 Patient pain scale 0/10 ?. 12:40:03 IV patent on arrival in right antecubital with 0.9% NaCl at [facility]. 12:40:19 Lab results completed and on chart. 12:40:22 Bilateral groins area was prepped with chlora-prep and draped in sterile fashion 12:40:22 Sharps counted by scrub and verified by R.N. 12:40:23 Alarms reviewed by R. N. 12:40:27 Use device set CATH PACK 12:40:28 ACIST Syringe (36879) opened to sterile field. 12:40:28 ACIST Hand Control (91373) opened to sterile field. 12:40:29 ACIST Manifold (10331) opened to sterile field. 12:40:29 Medline Cath Pack ([id number]) opened to sterile field. 12:40:29 Bag Decanter (2002S) opened to sterile field. 12:40:30 EMERALD Guide Wire (466-753) opened to sterile field. 12:40:37 SHEATH 5FR [place] (RUW205) opened to sterile field. 12:46:38 Baseline sample Acquired. 12:46:49 Baseline sample Acquired. 12:51:31 --------ALL STOP TIME OUT------ 12:51:32 Final Timeout: patient, procedure, and site verified with staff and physician. All members of the team are in agreement. 12:51:40 Bilateral groins site verified by team. 12:51:43 Fire Safety Assessment: A--An alcohol-based skin anteseptic being used preoperatively., C--Open oxygen or nitrous oxide is being used., D--An ESU, laser, or fiber-optic light is being used. 12:51:47 Physical assessment completed. ASA score P 2 - A patient with mild systemic disease as per Jason Boyd MD. 12:52:13 Versed 2 mg I.V. was administered by Susy Macdonald RN; for sedation; Verbal order read back and verified. 12:52:16 Maximum allowable contrast dose (3.7 X eGFR X 0.75)211 ml. 12:52:19 Sedation plan: IV Moderate Sedation Medication:Versed, Fentanyl 12:52:24 Fentanyl 50 mcg I.V. was administered by Susy Macdonald RN; for sedation; Verbal order read back and verified. 12:52:54 Procedure started. 12:53:01 Zero performed for pressure channel P1 12:53:08 Local anesthetic to left femerol artery with Lidocaine 2% by Jason Boyd MD.INITIAL ACCESS ONLY 12:53:53 A 5 Fr sheath was inserted into the Left Femoral artery 12:54:32 A DIAGNOSTIC UF 5Fr catheter ([id number]) was advanced over the wire and used for Procedure. 12:54:49 Abdominal angiogram w/ runoff was performed. 12:56:09 Left leg runoff performed. 12:56:10 Right leg runoff performed. 12:57:22 Catheter removed. 12:57:32 EXOSEAL 5Fr (EX500) opened to sterile field. 12:58:12 Sheath removed intact; hemostasis achieved with Exoseal to the Left Femoral artery. 12:58:22 Procedure ended.(Physican Out) 12:59:12 Fluoroscopy time 01.10 minutes. 12:59:24 Dose Area Product 51446 mGy/cm. 12:59:27 Fluoroscopy dose: 129 mGy 12:59:27 Flurop Dose total: 129 12:59:31 Contrast amount:Isovue 300 62ml. 12:59:36 Maximum allowable dose exceeded? No. 12:59:38 Sharps counted by scrub and verified by R.N. 12:59:40 Post-op/insertion site Left Femoral artery dressed using a 4 x 4 and Tegaderm. 12:59:43 Post-procedure physical assessment completed. ASA score P 2 - A patient with mild systemic disease as per Jason Boyd MD. 12:59:51 Post procedure rhythm: unchanged. 13:00:11 Estimated blood loss: 5 ml 13:00:12 Post procedure instruction explained to patient.Patient verbalizes understanding. 13:00:12 Patient needs reinforcement of post procedure teaching. 13:00:22 Procedure type changed to Cath procedure, Peripheral Cath Diagnostic Procedure, Service Dog Trainer Peripheral Procedures, AFRO (Diagnostic) 13:00:47 Procedure and supply charges have been captured, reviewed, submitted and are correct. 13:01:01 Procedure Complication : No complications 13:01:04 Vital chart was stopped 13:01:07 AFRO Findings: PVD: mild to moderate (<70%) 13:01:09 Operative report dictated upon procedure completion. 13:01:09 See physician's report for complete and final results. 13:01:11 Report given to Pre/Post Procedure Room. 13:01:13 Patient transfered to Pre/Post Procedure Room with Bed. 13:01:15 Procedure ended. 13:01:15 Full Disclosure recording stopped 13:01:23 End room use (Document Last) 13:03:08 End room use (Document Last) 13:03:49 End room use (Document Last) Device Usage Item Name Manufacture Quantity Catalog Hospital Part Current Minimal L ot# / Number Charge Number Stock Stock Serial# Code ACIST Acist 1 77050 070965 788204 329779 20 Syringe Medical (88973) Systems Inc ACIST Hand Acist 1 67916 979519 951641 236996 5 Control Medical (25606) Systems Inc ACIST Acist 1 26056 091737 779265 517780 5 Manifold Medical (50197) Systems Inc Medline Medline 1 [id number] 647071 68766 081787 5 Cath Pack ([id number]) Bag Microtek 1 476109 98432 760767 5 Decanter Medical Inc. () EMERALD Cardinal 1 502-455 280781 315787 684134 5 Guide Wire Health (502-455) SHEATH 5FR Terumo 1 [id number] 102224 643038 351262 5 [place] (EEX228) DIAGNOSTIC Cardinal 1 [id number] 360778 446109 648407 10 UF 5Fr Health catheter ([id number]) EXOSEAL 5Fr Cardinal 1 EX500 376321 621465 957955 10 (EX500) Health Signature Audit [place] Stage Time Signature Unsigned Intra-Procedure 08/03/2019 Pam Mendoza 1:03:08 PM RT(R) Intra-Procedure 08/03/2019 Susy Macdonald 1:03:49 PM RN Intra-Procedure 08/03/2019 Jason Boyd 1:04:07 PM Signatures Performing Physician : Signature : Jason Boyd MD Date : Time : Monitor : Pam Mendoza Signature : RT Date : Time : Nurse : Susy Torres RN Signature : Date : Time : [address] [place] [address]
[2019-08-03] MEDS ORDERED: PROCARDIA XL30 MG PO (09:59)
[2019-08-03] MEDS ORDERED: FLOMAX0.4 MG PO (10:00)
[2019-08-03] MEDS ORDERED: FISH OIL 1,0001 CA1 PO (10:01)
[2019-08-03] MEDS ORDERED: DIGESTIVE ADVANTAGE PO (10:01)
[2019-08-03] MEDS ORDERED: ULTRAM50 MG PO (10:02)
[2019-08-03 10:31] VITALS: BP 123/69; Ht 177.8 cm; Wt 84.1 kg
[2019-08-03 10:48] LABS: EOSINOPHILS 3.9 % (0-7); HEMATOCRIT 40.9 % (42.0-54.0); HEMOGLOBIN 13.4 g/dL (13.5-17.5); IMMATURE GRANULOCYTES 0.1 % (0-5); LYMPHOCYTES 30.2 % (15-50); MCH 29.9 pg (26.0-34.0); MCHC 32.8 g/dL (31.0-37.0); MCV 91.3 fL (80.0-100.0); MEAN PLATELET VOLUME 11.5 fL (7.4-10.4); MONOCYTES 11.5 % (2-11); NEUTROPHILS 53.3 % (40-80); PLATELET COUNT 415 10x3/uL (130-400); RBC 4.48 10x6/uL (4.20-6.10); RDW 13.9 % (11.5-14.5); WBC 7.2 10x3/uL (4.8-10.8)
[2019-08-03 11:01] LABS: ALT (SGPT) 16 U/L (10-68); CALC OSMOLALITY 284 mosm/kg (275-300); CARBON DIOXIDE 27.3 mmol/L (21.0-32.0); CHLORIDE - SERUM 107 mmol/L (98-107); CHOL - HDL RATIO 3.3 ratio (2.3-4.9); CHOLESTEROL, TOTAL 142 mg/dL (0-200); GLUCOSE 106 mg/dL (74-106); HDL CHOLESTEROL 43 mg/dL (32-96); LDL CHOLESTEROL 78 mg/dL (0-100); LDL-HDL RATIO 1.8 ratio (1.5-3.5); POTASSIUM - SERUM 4.3 mmol/L (3.5-5.1); SODIUM 142 mmol/L (136-145); TRIGLYCERIDE 108 mg/dL (30-200); UREA NITROGEN 18 mg/dL (7-18); eGFR NON AFRICAN AMERICAN 76 mL/min (90-120)
--- NOTE | 2019-08-03 13:14 | NUR ---
PT ARRIVED BY STRETCHER. PLACED ON MONITOR. ASSESSMENT COMPLETED. VSS. FAMILY AT BEDSIDE.
--- NOTE | 2019-08-03 13:30 | NUR ---
PT RESTING COMFORTABLY. SUPINE POSITION. LEFT GROIN DRESSING C/D/I. NO S/S OF HEMATOMA NOTED. FAMILY AT BEDSIDE. CALL LIGHT WITHIN REACH.
--- NOTE | 2019-08-03 14:00 | NUR ---
PT RESTING COMFORTABLY. LEFT GROIN DRESSING C/D/I. NO S/S OF HEMATOMA NOTED. CALL LIGHT WITHIN REACH. FAMILY AT BEDSIDE. VSS. HEAD OF BED INC TO 30 DEGREES. TOLERATED WELL.
--- NOTE | 2019-08-03 14:15 | NUR ---
LEFT GROIN DRESSING C/D/I. NO S/S OF HEMATOMA NOTED. PT SET UP WITH SANDWICH TRAY AND DRINK. DENIES NAUSEA AT THIS TIME.
--- NOTE | 2019-08-03 14:45 | NUR ---
LEFT GROIN DRESSING C/D/I. NO S/S OF HEMATOMA NOTED. PIV D/C'D WITH CATH TIP INTACT. TOLERATED WELL. DISCUSSED DISCHARGE INSTRUCTIONS WITH PT AND PT'S FAMILY. THEY VOICED UNDERSTANDING. PT INSTRUCTED TO GET UP AND DRESSED AT THIS TIME. FAMILY AT BEDSIDE TO ASSIST.
--- NOTE | 2019-08-03 15:00 | NUR ---
PT AMBULATED TO RESTROOM. VOIDED WITHOUT DIFFICULTY. TAKEN OUT TO VEHICLE BY WHEELCHAIR. NO S/S OF DISTRESS NOTED. ALL BELONGINGS AND PAPERWORK IN HAND.
--- NOTE | 2019-08-06 11:10 | OP ---
PATIENT NAME: HARRISON MARTINES MEDICAL RECORD: [id number] :38 LOCATION:D.CAT ADMISSION DATE: SURGEON: MADELINE HARRIS MD DATE OF OPERATION: 08/03/2019 PROCEDURES: 1. Aortofemoral runoff. 2. Abdominal aortography. INDICATION: Claudication and peripheral vascular disease. PROCEDURE IN DETAIL: After informed consent was obtained and after a detailed description of risks, benefits as well as alternative therapies, the patient elected to proceed with angiogram and aortofemoral runoff. The left femoral area was prepped and draped in normal sterile fashion. Left femoral artery was cannulated via modified Seldinger technique with placement of 5-Turkish sheath. All catheters exchanged through this sheath. FINDINGS: Abdominal aortography was performed. The catheter was pulled down for aortofemoral runoff. Abdominal aortography reveals no significant abdominal aortic disease, no dissection or aneurysm formation. RIGHT LEG: A. Iliac: The common internal and external iliacs have moderate irregularities, but no flow-limiting stenosis. B. Femoral system: The common and deep femoral are widely patent. Superficial femoral has a previously placed stent that is well widely patent with minimal in-stent restenosis. The remainder of the superficial femoral artery has only mild irregularities, no flow-limiting stenosis. C. Popliteal and infrapopliteal vessels patent giving good 3-vessel runoff to the foot. LEFT LEG: A. Iliac: The common internal and external iliacs have moderate irregularities, but no flow-limiting stenosis. B. Femoral system: The common and deep femoral are widely patent. Superficial femoral has a previously placed stent that is well widely patent with minimal in-stent restenosis. The remainder of the superficial femoral artery has only mild irregularities, no flow-limiting stenosis. C. Popliteal and infrapopliteal vessels patent giving good 3-vessel runoff to the foot. OVERALL IMPRESSION: Wide patency of the previously placed stents bilaterally in the SFAs with no new disease elsewise. Continue medical management of the peripheral vascular disease and peripheral risk factors. TRANSINT:[id number] Voice Confirmation ID: [id number] DOCUMENT ID: [id number] OPERATIVE REPORT [id number] MARTINESHARRISON JEFFREY MD at 1110 CC: [id number] DICTATION DATE: 08/03/19 1306 JUNIOR WEB DESIGNER: 08/03/19 1332 DEP CLI 08/03/19 [facility] [address] [place] [address]
== END 2019-08-03 15:00 | disposition home or self-care (01) ==
LOC: D.CATH 09:25
PROVIDERS: ATTEND Internal Medicine Interventional Cardiology
DX: I70.213 Atherosclerosis of native arteries of extremities with intermittent claudication, bilateral legs (principal)

== ENCOUNTER → 2019-09-05 18:12 | Outpatient (CLI) | payer OTHER ==
[2019-08-03 10:31] VITALS: BMI 26.6
[~2019-09-05 18:12] MED LIST changes: +DIGESTIVE ADVANTAGE PO; +PROCARDIA XL30 MG PO; +ULTRAM50 MG PO
== END | disposition home or self-care (01) ==
LOC: D.LABREF 18:12
PROVIDERS: ATTEND Podiatrist Foot & Ankle Surgery
DX: L98.9 Disorder of the skin and subcutaneous tissue, unspecified (principal)

== ENCOUNTER 2019-10-05 06:55 | Day surgery (SDC) | payer OTHER ==
[2019-10-04 11:10] LABS: BASOPHILS 0.7 % (0-2); EOSINOPHILS 3.6 % (0-7); HEMATOCRIT 40.8 % (42.0-54.0); HEMOGLOBIN 13.2 g/dL (13.5-17.5); IMMATURE GRANULOCYTES 0.4 % (0-5); LYMPHOCYTES 30.2 % (15-50); MCH 29.7 pg (26.0-34.0); MCHC 32.4 g/dL (31.0-37.0); MCV 91.9 fL (80.0-100.0); MEAN PLATELET VOLUME 10.3 fL (7.4-10.4); MONOCYTES 8.7 % (2-11); NEUTROPHILS 56.4 % (40-80); PLATELET COUNT 519 10x3/uL (130-400); RBC 4.44 10x6/uL (4.20-6.10); RDW 14.1 % (11.5-14.5); WBC 8.2 10x3/uL (4.8-10.8)
[2019-10-04 11:16] LABS: APTT 31.3 SECONDS (22.8-39.4); INR 1.09 (0.85-1.17); PROTIME 13.6 SECONDS (11.6-15.0)
[2019-10-04 11:26] LABS: CALC OSMOLALITY 281 mosm/kg (275-300); CALCIUM 9.4 mg/dL (8.5-10.1); CARBON DIOXIDE 28.6 mmol/L (21.0-32.0); CHLORIDE - SERUM 106 mmol/L (98-107); CREATININE - SERUM 0.9 mg/dL (0.6-1.3); GLUCOSE 102 mg/dL (74-106); POTASSIUM - SERUM 4.9 mmol/L (3.5-5.1); SODIUM 141 mmol/L (136-145); UREA NITROGEN 16 mg/dL (7-18); eGFR NON AFRICAN AMERICAN 86 mL/min (90-120)
[~2019-10-05] VITALS: Ht 177.8 cm; Wt 82.6 kg
--- NOTE | ~2019-10-05 | OP ---
PATIENT NAME: HARRISON MARTINES MEDICAL RECORD: [id number] :38 LOCATION:D.OPS ADMISSION DATE: SURGEON: NARESH MILLER MD DATE OF OPERATION: 10/05/2019 PREOPERATIVE DIAGNOSES: 1. Malignant melanoma of the right foot. 2. Metastatic malignant melanoma to the right inguinal region. 3. Coronary artery disease. 4. Hypertension. 5. Hyperlipidemia. 6. Peripheral vascular disease. 7. Status post sex change. POSTOPERATIVE DIAGNOSES: 1. Malignant melanoma of the right foot. 2. Metastatic malignant melanoma to the right inguinal region. 3. Coronary artery disease. 4. Hypertension. 5. Hyperlipidemia. 6. Peripheral vascular disease. 7. Status post sec change. PROCEDURE: 1. Left subclavian vein port placement with fluoroscopic interpretation. 2. Excisional right inguinal lymph node biopsy. 3. Pelvic examination. SURGEON: Naresh Miller MD REPORT OF PROCEDURE: The patient's left chest and right groin were prepped and draped in sterile fashion. A needle was used to cannulate the left subclavian vein and a guidewire was advanced with ease. Fluoro was used to note that the wire was in good position in the venous system. A skin incision was made on the left superior lateral chest and a subcutaneous pouch was made over the pectoral fascia. The catheter was tunneled between this pouch and wire exit site. A port was then sutured to the pectoral fascia using interrupted 4-0 Prolene. The catheter was cut with a beveled tip at 25 cm. The dilator trocar device was placed over the wire and the wire and dilator were removed. The catheter tip was advanced through the trocar and the trocar was removed. The catheter tip was noted to be in good position on the superior vena cava near the right atrial junction. The catheter aspirated nonpulsatile dark blood and flushed easily with heparinized saline. The subcutaneous tissues were reapproximated with interrupted 3-0 Vicryl and the skin was closed with subcutaneous running 5-0 Monocryl. We then approached the right groin. The patient had a palpable lymph node just below the inguinal crease. An oblique incision was made overlying this mass and electrocautery was used to dissect through the subcutaneous tissues. We encountered a blue pigmented lymphoid mass. This was completely excised using electrocautery and sent off for permanent specimen. Any bleeding from the area was treated with electrocautery. We then irrigated out the wound with normal saline. The subcutaneous tissues were reapproximated with interrupted 3-0 Vicryl and then infused with 10 mL of 0.25% Marcaine with epinephrine. The skin incision was closed with running subcutaneous 5-0 Monocryl and dressed appropriately. We then frog-legged the patient. Dr. Gutierrez had requested an evaluation of the patient's pelvic area. Preoperatively, this OPERATIVE REPORT [id number] HARRISON MARTINES was discussed with the patient with 2 female OR attendings present. We did an examination of the patient's pelvic region where they had a sex change operation. The patient had an opening consistent with a vaginal opening. This was very tight and stenotic, making it impossible for me to look inside of it. The tissue externally appeared to be normal with no signs of any discrete masses, lesions or ulcerations. No biopsies were performed. COMPLICATIONS: None. CONDITION: Stable. ANESTHESIA: General endotracheal and local. BLOOD LOSS: Minimal. TRANSINT:[id number] Voice Confirmation ID: [id number] DOCUMENT ID: [id number] NARESH MILLER MD CC: JANETTE JOHNSON DO, GAULDIN, TIMOTHY W DPM and KLEVER GUTIERREZ [id number] DICTATION DATE: 10/05/19 1200 MANAGER MEDICAL WRITING: 10/05/[address] [facility] [address] [place] [address]
[~2019-10-05 06:55] MED LIST changes: +ASCORBIC ACID500 MG PO; +HYDROCODON-ACE1 EAC7 PO
[2019-10-05 08:34] VITALS: BP 126/57; Ht 177.8 cm; Wt 82.6 kg
--- NOTE | 2019-10-05 09:16 | NUR ---
ACCORDING TO THE SUICIDE ASSESSMENT THE PATIENT SCORES LOW AND HE WILL NOT NEED A 1:1 OBSERVATION. SUICIDE RESOURCE FLYER PROVIDED AND ENCOURAGED THE PATIENT TO SPEAK TO HIS PRIMARY CARE DOCTOR IN REFERENCE TO HIS THOUGHTS AND FEELINGS IN REGARDS TO HIS DEPRESSION.
[2019-10-05] MEDS ORDERED: HYDROCODON-ACE1 EA10 PO (11:53)
--- NOTE | 2019-10-05 12:09 | NUR ---
1153 PATIENT ARRIVED WITH OPA IN PLACE. PATIENT AROUSING UP. OPA DEISCONTINUED.
--- NOTE | 2019-10-05 12:47 | NUR ---
1234-REC'D FROM RR. AWAKE AND ALERT.DENIES PAIN.DRESSING TO UPPER LEFT CHEST AND RIGHT GROIN CDI. VSS.REPORTS PAIN 2/10. ORANGE JUICE AT BEDSIDE,CL IN EASY REACH
--- NOTE | 2019-10-05 13:50 | NUR ---
1300-FULL LIQUID TRAY TO ROOM.
--- NOTE | 2019-10-05 13:51 | NUR ---
1320-REPORTS ITCHING TO HANDS AND FEET.NO REDNESS,NO RASH,NO OBVIOUS ABNORMAL AREAS TO HANDS OR FEET. NEW T.O REC'D FROM -ADMINISTER BENADRYL 25MG 1 BY MOUTH.
--- NOTE | 2019-10-05 13:53 | NUR ---
1445-REPORTS DECREASE IN ITCHING,REPORTS INTERMITTENT. CONTINUE TO SHOW NO AREAS OF RASH OR ABNORMAL SKIN TO FEET OR HANDS.VSS.
--- NOTE | 2019-10-05 13:55 | NUR ---
1453-DISCHARGE CRITERIA MET.REMOVED IV FROM LEFT ARM WITH CATH INTACT,DISPOSED INTO SHARPS,COVERED SITE WITH COTTON BALL SECURED WITH MEDIPORE TAPE. REVIEWED POST OPERATIVE INSTRUCTIONS AND FOLLOW UP WITH APPOINTMENT WITH PT,SPOUSE AT BEDSIDE.VERBALIZED UNDERSTANDING.
--- NOTE | 2019-10-05 13:57 | NUR ---
1457-REPORTS ITCHING SUBSIDED AT THIS TIME. ESCORTED OUT VIA W/C WITH SPOUSE AWAITING TO DRIVE HOME.DISCHARGE PAPERWORK IN HAND
--- NOTE | 2019-10-05 14:02 | NUR ---
1345-REPORTS DECREASE ITCHING TO HANDS AND FEET. NO OBVIOUS SKIN REACTION, NO REDNESS.
--- NOTE | 2019-10-05 14:04 | NUR ---
1353-DISCHARGE CRITERIA MET.REMOVED IV FROM LEFT ARM WITH CATH INTACT,DISPOSED INTO SHARPS,COVERED WITH COTTON BALL,SECURED WITH MEDIPORT TAPE. VSS. REVIEWED POST OPERATIVE INSTRUCTIONS AND FOLLOW UP APPOINTMENT WITH PT,SPOUSE AT BEDSIDE. VERBALIZED UNDERSTANDING.
--- NOTE | 2019-10-05 14:06 | NUR ---
9397-REPORTS ITCHING TO HANDS AND FEET SUBSIDED. ESCORTED OUT VIA W/C WITH DISCHARGE INSTRUCTIONS IN HAND. SPOUSE AWAITING TO DRIVE HOME.VERY PLEASANT PT
== END 2019-10-05 13:57 | disposition home or self-care (01) ==
LOC: D.OPS 06:55 → D.PAN 09:00 → D.OPS 13:57
PROVIDERS: Anesthesiology; ATTEND Surgery
DX: C43.71 Malignant melanoma of right lower limb, including hip (principal); C79.2 Secondary malignant neoplasm of skin; I25.10 Atherosclerotic heart disease of native coronary artery without angina pectoris; I10 Essential (primary) hypertension; E78.5 Hyperlipidemia, unspecified; I73.9 Peripheral vascular disease, unspecified; Z87.890 Personal history of sex reassignment; I25.2 Old myocardial infarction

== ENCOUNTER 2020-04-02 14:37 | Inpatient (IN) | payer MEDICARE ==
[~2020-04-02] VITALS: Ht 177.8 cm; Wt 79.4 kg
[~2020-04-02 14:37] MED LIST changes: +HYDROCODON-ACE1 EA10 PO; +Levaquin PO; +MIRALAX17 GM PO; +VITAMIN B-121000 MCG PO
[2020-04-02] MEDS ORDERED: PACERONE200 MG PO (14:46)
[2020-04-02 15:06] LABS: CALC OSMOLALITY 265 mosm/kg (275-300); CARBON DIOXIDE 22.2 mmol/L (21.0-32.0); CHLORIDE - SERUM 98 mmol/L (98-107); CREATININE - SERUM 0.8 mg/dL (0.6-1.3); GLUCOSE 134 mg/dL (74-106); POTASSIUM - SERUM 3.6 mmol/L (3.5-5.1); SODIUM 131 mmol/L (136-145); UREA NITROGEN 15 mg/dL (7-18); eGFR NON AFRICAN AMERICAN > 90 mL/min (90-120)
[2020-04-02] MEDS ORDERED: CELEXA40 MG PO (15:06)
[2020-04-02] MEDS ORDERED: PLAVIX75 MG PO (15:06)
[2020-04-02] MEDS ORDERED: ZOFRAN ODT4 MG/UDTAB (15:07)
[2020-04-02] MEDS ORDERED: MORPHINE SULFAT15 M4 PO (15:07)
[2020-04-02] MEDS ORDERED: TEMAZEPAM30 MG PO (15:08)
[2020-04-02] MEDS ORDERED: ZANAFLEX4 MG PO (15:08)
--- NOTE | 2020-04-02 15:11 | NUR ---
NOHELIA MORALES COLLECTED= NEGATIVE DR LOYOLA NOTIFIED
[2020-04-02 15:14] LABS: ALBUMIN 3.5 g/dL (3.4-5.0); ALKALINE PHOSPHATASE 36 U/L (30-120); ALT (SGPT) 16 U/L (10-68); BILIRUBIN - TOTAL 0.99 mg/dL (0.2-1.3); LIPASE 1320 U/L (73-393); PROTEIN - SERUM 7.8 g/dL (6.4-8.2); TROPONIN-I < 0.017 ng/mL (0.000-0.060)
[2020-04-02 15:15] LABS: BASOPHILS 0.2 % (0-2); EOSINOPHILS 0.1 % (0-7); HEMATOCRIT 39.3 % (42.0-54.0); HEMOGLOBIN 12.9 g/dL (13.5-17.5); IMMATURE GRANULOCYTES 0.3 % (0-5); LYMPHOCYTES 8.6 % (15-50); MCH 29.1 pg (26.0-34.0); MCHC 32.8 g/dL (31.0-37.0); MCV 88.5 fL (80.0-100.0); MEAN PLATELET VOLUME 11.2 fL (7.4-10.4); MONOCYTES 7.7 % (2-11); NEUTROPHILS 83.1 % (40-80); PLATELET COUNT 388 10x3/uL (130-400); RBC 4.44 10x6/uL (4.20-6.10); RDW 13.8 % (11.5-14.5); WBC 17.7 10x3/uL (4.8-10.8)
[2020-04-02 15:35] VITALS: BP 148/64
[2020-04-02 15:37] LABS: AMYLASE - SERUM 395 U/L (25-115)
--- NOTE | 2020-04-02 15:51 | NUR ---
URINE SPEC COLLECTED, LABELED AT BS AND SENT TO LAB
[2020-04-02 16:03] LABS: BILIRUBIN NEGATIVE (NEGATIVE); GLUCOSE NEGATIVE (NEGATIVE); KETONE NEGATIVE (NEGATIVE); NITRITE NEGATIVE (NEGATIVE); SPECIFIC GRAVITY 1.015 (1.005-1.020); UROBILINOGEN NORMAL (NORMAL)
[2020-04-02 17:32] VITALS: BP 147/54
[2020-04-02 17:49] LABS: MAGNESIUM - SERUM 1.7 mg/dL (1.8-2.4); THYROID STIMULATING HORMONE 1.39 uIU/mL (0.36-3.74)
--- NOTE | 2020-04-02 18:50 | NUR ---
ATTEMPTED TO CALL REPORT NURSE UNAVAILABLE
--- NOTE | 2020-04-02 19:21 | NUR ---
REPORT TO SILVERIO OWENS
[2020-04-02 20:07] LABS: INR 1.34 (0.85-1.17); PROTIME 16.5 SECONDS (11.6-15.0)
[2020-04-02 20:09] LABS: APTT 119.7 SECONDS (22.8-39.4)
--- NOTE | 2020-04-02 20:30 | NUR ---
PT SUPINE IN BED IN ROOM, APPEARS LETHARGIC, OCCASIONAL COUGH. DENIES PAIN AT THIS TIME. TATO ALARM IN USE. CL GIVEN, BUT PT TOSSED IT OVER BEDSIDE RAIL. NOT ANSWERING ANY QUESTIONS AT THIS TIME. VS STABLE. TELEMETRY OBTAINED AND APPLIED. PT HAVING TROUBLE FOLLOWING INSTRUCTIONS. WILL MONITOR CLOSELY.
--- NOTE | 2020-04-02 23:00 | NUR ---
PT DOUBLED OVER, CLENCHING ABDOMEN AND GRIMACING. UNABLE TO RATE PAIN. NOT ANSWERING QUESTIONS EFFECTIVELY. TROUBLE UNDERSTANDING USE OF TRAILER TECHNICIAN PUMP. STILL NAUSEATED AND VOMITTING, AFTER PRN NAUSEA MED GIVEN. JACK BURK PAGED AND NOTIFIED. ORDERS ADDED PER TELE ORDER. SCDs APPLIED, I.S. AT BEDSIDE. PT ATTEMPTED TO GET OUT OF BED, W/O CALLING FOR HELP. SITTING IN CHAIR IN ROOM, TATO RODGER IN USE. WILL CONTINUE TO MONITOR.
[2020-04-03] VITALS: BP 127/69
[2020-04-03 02:59] VITALS: BMI 25.1
[2020-04-03 04:00] VITALS: BP 146/63
[2020-04-03 06:02] LABS: ALBUMIN 3.2 g/dL (3.4-5.0); ALKALINE PHOSPHATASE 29 U/L (30-120); ALT (SGPT) 17 U/L (10-68); BILIRUBIN - TOTAL 0.79 mg/dL (0.2-1.3); CALC OSMOLALITY 264 mosm/kg (275-300); CALCIUM 8.5 mg/dL (8.5-10.1); CHLORIDE - SERUM 99 mmol/L (98-107); MAGNESIUM - SERUM 1.8 mg/dL (1.8-2.4); POTASSIUM - SERUM 3.4 mmol/L (3.5-5.1); PROTEIN - SERUM 7.7 g/dL (6.4-8.2); SODIUM 133 mmol/L (136-145); UREA NITROGEN 13 mg/dL (7-18); eGFR NON AFRICAN AMERICAN 76 mL/min (90-120)
[2020-04-03 06:04] LABS: AMYLASE - SERUM 143 U/L (25-115); GLUCOSE 78 mg/dL (74-106); LIPASE 411 U/L (73-393)
[2020-04-03 06:16] LABS: HEMATOCRIT 42.1 % (42.0-54.0); HEMOGLOBIN 13.8 g/dL (13.5-17.5); LYMPHOCYTES 6.6 % (15-50); MCH 29.5 pg (26.0-34.0); MCHC 32.8 g/dL (31.0-37.0); MEAN PLATELET VOLUME 11.5 fL (7.4-10.4); NEUTROPHILS 83.4 % (40-80); PLATELET COUNT 299 10x3/uL (130-400); RBC 4.68 10x6/uL (4.20-6.10); RDW 14.2 % (11.5-14.5)
[2020-04-03 08:19] VITALS: BP 137/56
[2020-04-03 12:27] VITALS: BP 115/68
[2020-04-03 12:35] VITALS: BMI 25.1
--- NOTE | 2020-04-03 12:36 | NUR ---
UP IN CHAIR,WITHOUT NEEDS.DOOR OPEN
[2020-04-03 16:37] VITALS: BP 143/66
[2020-04-03 17:02] VITALS: Ht 177.8 cm; Wt 79.4 kg
[2020-04-03 20:00] VITALS: BP 121/70
[2020-04-04] VITALS: BP 130/56
[2020-04-04 04:00] VITALS: BP 130/56
--- NOTE | 2020-04-04 04:28 | NUR ---
ASSESSED AT THE BEGINNING OF THE SHIFT. PT IS ALERT BUT NOT ABLE TO CALL FOR NEEDS OR WORK WITH THE HOTEL MANAGER WITHOUT ASSIST FROM THE NURSE. SHE HAS NOT CALLED ONCE DURING THE NIGHT AND WE HAVE CHECKED ON HER NEEDED AND FREQUENTLY TO QUIET HER IV MACHINE. HE TELEMETY IS IN PLACE SHOWING 100 CONTROLLED A FIB. THERE HAS BEEN NO NAUSEA NOTED WITH HER ZOFRAN INFUSING ORDERD.
[2020-04-04 05:18] LABS: BASOPHILS 0.1 % (0-2); EOSINOPHILS 0.5 % (0-7); HEMATOCRIT 35.1 % (42.0-54.0); IMMATURE GRANULOCYTES 0.3 % (0-5); LYMPHOCYTES 7.2 % (15-50); MCH 28.8 pg (26.0-34.0); MCHC 31.3 g/dL (31.0-37.0); MCV 91.9 fL (80.0-100.0); MEAN PLATELET VOLUME 10.9 fL (7.4-10.4); MONOCYTES 10.4 % (2-11); NEUTROPHILS 81.5 % (40-80); PLATELET COUNT 320 10x3/uL (130-400); RBC 3.82 10x6/uL (4.20-6.10); RDW 14.5 % (11.5-14.5); WBC 19.6 10x3/uL (4.8-10.8)
[2020-04-04 05:29] LABS: ALBUMIN 2.8 g/dL (3.4-5.0); ANION GAP 9.9 mmol/L (8-16); BILIRUBIN - TOTAL 0.59 mg/dL (0.2-1.3); CALCIUM 8.3 mg/dL (8.5-10.1); CARBON DIOXIDE 26.4 mmol/L (21.0-32.0); CREATININE - SERUM 1.2 mg/dL (0.6-1.3); PROTEIN - SERUM 6.9 g/dL (6.4-8.2)
[2020-04-04 05:33] LABS: MAGNESIUM - SERUM 2.5 mg/dL (1.8-2.4); POTASSIUM - SERUM 4.3 mmol/L (3.5-5.1)
--- NOTE | 2020-04-04 07:00 | NUR ---
CAONFUSED THIS AM. WANTING TO GO HOME AND EAT SOMETHING. NO C/O PAIN. NO S/S OF ACUTE DISTRESS NOTED. NPO. BANDAID TO RIGHT FOOT, BALL OF FOOT. INCONTINENT AT TIMES. IV TO LEFT AC, NS INFUSING @ 125ML/HR AND ZOFRAN @ 4.7ML/HR. SITE PATENT WITHOUT REDNESS OR SWELLING. MORPHINE INOCULATOR 11/02/09, PATIENT NOT USING. ON TELEMETRY 94 CONTROLLED A-FIB WITH BBB. DENIES ANY NEEDS AT THIS TIME. CALL LIGHT IN REACH. WILL CONTINUE TO MONITOR.
--- NOTE | 2020-04-04 08:03 | NUR ---
PATIENT IS CONFUSED AND GETTING OUT OF BED. SHE WANTS FOOD AND GETS ANGRY.BED ALARM ON AND WORKING
[2020-04-04 08:33] VITALS: BP 129/54
[2020-04-04 12:22] VITALS: BP 118/55
[2020-04-04 16:59] VITALS: BP 135/59
[2020-04-04 20:00] VITALS: BP 120/62
[2020-04-05] VITALS: BP 131/62
[2020-04-05 04:00] VITALS: BP 121/65
[2020-04-05 06:31] LABS: BASOPHILS 0.2 % (0-2); EOSINOPHILS 2.8 % (0-7); HEMATOCRIT 33.8 % (42.0-54.0); HEMOGLOBIN 10.9 g/dL (13.5-17.5); IMMATURE GRANULOCYTES 0.3 % (0-5); LYMPHOCYTES 11.6 % (15-50); MCH 29.1 pg (26.0-34.0); MCHC 32.2 g/dL (31.0-37.0); MCV 90.4 fL (80.0-100.0); MONOCYTES 9.6 % (2-11); NEUTROPHILS 75.5 % (40-80); PLATELET COUNT 345 10x3/uL (130-400); RBC 3.74 10x6/uL (4.20-6.10); RDW 14.3 % (11.5-14.5)
[2020-04-05 06:34] LABS: WBC 14.2 10x3/uL (4.8-10.8)
[2020-04-05 06:50] LABS: ALBUMIN 2.6 g/dL (3.4-5.0); ANION GAP 9.5 mmol/L (8-16); BILIRUBIN - TOTAL 0.34 mg/dL (0.2-1.3); CALCIUM 8.4 mg/dL (8.5-10.1); CARBON DIOXIDE 26.2 mmol/L (21.0-32.0); CREATININE - SERUM 1.1 mg/dL (0.6-1.3); MAGNESIUM - SERUM 2.4 mg/dL (1.8-2.4); POTASSIUM - SERUM 3.7 mmol/L (3.5-5.1); PROTEIN - SERUM 6.6 g/dL (6.4-8.2)
--- NOTE | 2020-04-05 07:38 | NUR ---
RESTING IN BED, NO DISTRESS NOTED, IV INFUSING, MANAGER MARKET IN PLACE, EYES CLOSED, CONT TO MONITOR PAIN AND CONFUSION
[2020-04-05 08:30] VITALS: BP 141/64
[2020-04-05 12:30] VITALS: BP 119/69
[2020-04-05 17:39] VITALS: BP 121/56
--- NOTE | 2020-04-05 18:09 | NUR ---
OT NOTE: (DOS 04/04/2020) PT COMPLETED SIDE ROLLING WITH SBA. PT COMPLETED UE AROM EXS TOLERATED. PT COMPLETED UB HYGIENE TASKS WITH SETUP. PT REQUESTED FOOD. NURSING STATED MESSAGE ALREADY SENT TO DIETARY. [phone] JACQUELYN BOBBY COTA
--- NOTE | 2020-04-05 19:28 | NUR ---
RESPONDED TO PATIENT'S BATHROOM CALL LIGHT. ASSISTED PATIENT BACK TO BED. PATIENT VOIDED AND HAD A BM. PATIENT DENIES OTHER NEEDS AT THIS TIME. BED IN LOWEST POSITION, CALL LIGHT WITHIN REACH, AND BED ALARM ON. ENCOURAGED THE PATIENT TO CALL IF PATIENT HAS NEEDS. WILL CONTINUE TO MONITOR.
[2020-04-05 20:00] VITALS: BP 114/62
[2020-04-06] VITALS: BP 145/70
[2020-04-06 04:00] VITALS: BP 137/62
[2020-04-06 05:33] LABS: BASOPHILS 0.2 % (0-2); EOSINOPHILS 4.4 % (0-7); HEMATOCRIT 33.9 % (42.0-54.0); HEMOGLOBIN 11.1 g/dL (13.5-17.5); IMMATURE GRANULOCYTES 0.3 % (0-5); LYMPHOCYTES 11.1 % (15-50); MCH 29.4 pg (26.0-34.0); MCHC 32.7 g/dL (31.0-37.0); MCV 89.9 fL (80.0-100.0); MEAN PLATELET VOLUME 10.5 fL (7.4-10.4); MONOCYTES 8.6 % (2-11); NEUTROPHILS 75.4 % (40-80); PLATELET COUNT 373 10x3/uL (130-400); RBC 3.77 10x6/uL (4.20-6.10); RDW 14.4 % (11.5-14.5); WBC 12.4 10x3/uL (4.8-10.8)
[2020-04-06 06:05] LABS: ALBUMIN 2.5 g/dL (3.4-5.0); ALKALINE PHOSPHATASE 39 U/L (30-120); ALT (SGPT) 17 U/L (10-68); BILIRUBIN - TOTAL 0.35 mg/dL (0.2-1.3); CALC OSMOLALITY 274 mosm/kg (275-300); CALCIUM 8.1 mg/dL (8.5-10.1); CHLORIDE - SERUM 103 mmol/L (98-107); GLUCOSE 88 mg/dL (74-106); MAGNESIUM - SERUM 1.8 mg/dL (1.8-2.4); POTASSIUM - SERUM 3.4 mmol/L (3.5-5.1); PROTEIN - SERUM 6.4 g/dL (6.4-8.2); SODIUM 137 mmol/L (136-145); eGFR NON AFRICAN AMERICAN 76 mL/min (90-120)
[2020-04-06 06:10] LABS: AMYLASE - SERUM 39 U/L (25-115); LIPASE 137 U/L (73-393); UREA NITROGEN 18 mg/dL (7-18)
--- NOTE | 2020-04-06 07:34 | NUR ---
RESTING IN BED, NO DISTRESS NOTED, MEDICAL CERTIFICATION SPECIALIST AND IV FLUIDS INFUSING, CONFUSED TO PLACE AND TIME
[2020-04-06 08:29] VITALS: BP 104/67
[2020-04-06 12:14] VITALS: BP 116/72
[2020-04-06 16:20] VITALS: BP 133/69
--- NOTE | 2020-04-06 19:28 | NUR ---
ASSISTED PATIENT TO AND FROM RESTROOM. PATIENT VOIDED. PATIENT DENIES OTHER NEEDS AT THIS TIME. BED IN LOWEST POSITION AND CALL LIGHT WITHIN REACH. ENCOURAGED THE PATIENT TO CALL WITH NEEDS. WILL CONTINUE TO MONITOR.
[2020-04-06 20:00] VITALS: BP 131/95
[2020-04-07] VITALS: BP 123/51
[2020-04-07 04:00] VITALS: BP 121/59
[2020-04-07 06:20] LABS: BASOPHILS 0.2 % (0-2); EOSINOPHILS 2.7 % (0-7); HEMATOCRIT 33.7 % (42.0-54.0); IMMATURE GRANULOCYTES 0.4 % (0-5); LYMPHOCYTES 18.4 % (15-50); MCH 28.9 pg (26.0-34.0); MCHC 32.6 g/dL (31.0-37.0); MCV 88.7 fL (80.0-100.0); MEAN PLATELET VOLUME 10.7 fL (7.4-10.4); MONOCYTES 12.1 % (2-11); NEUTROPHILS 66.2 % (40-80); PLATELET COUNT 408 10x3/uL (130-400); RDW 14.2 % (11.5-14.5)
[2020-04-07 06:34] LABS: WBC 9.1 10x3/uL (4.8-10.8)
[2020-04-07 06:38] LABS: ALBUMIN 2.4 g/dL (3.4-5.0); ALKALINE PHOSPHATASE 37 U/L (30-120); ALT (SGPT) 16 U/L (10-68); AMYLASE - SERUM 30 U/L (25-115); BILIRUBIN - TOTAL 0.34 mg/dL (0.2-1.3); CALC OSMOLALITY 272 mosm/kg (275-300); CALCIUM 7.8 mg/dL (8.5-10.1); CARBON DIOXIDE 25.7 mmol/L (21.0-32.0); CHLORIDE - SERUM 104 mmol/L (98-107); CREATININE - SERUM 0.8 mg/dL (0.6-1.3); GLUCOSE 91 mg/dL (74-106); MAGNESIUM - SERUM 1.8 mg/dL (1.8-2.4); POTASSIUM - SERUM 3.1 mmol/L (3.5-5.1); PROTEIN - SERUM 6.2 g/dL (6.4-8.2); SODIUM 137 mmol/L (136-145); eGFR NON AFRICAN AMERICAN > 90 mL/min (90-120)
[2020-04-07 06:42] LABS: LIPASE 55 U/L (73-393); UREA NITROGEN 9 mg/dL (7-18)
[2020-04-07 08:43] VITALS: BP 156/93
--- NOTE | 2020-04-07 09:20 | NUR ---
ASSESSMENT PER FLOW SHEET. PATIENT IS COUGHING AND HAS THICK, CLEAR FROTHY LOOKING SPUTUM. WHEEZES THROUGHOUT LUNGS RO. ASSIST TO BATHROOM AND BACK TO BED.FALL PREVENTION IN PLACE WITH TATO MAT.DOOR OPEN TO MONITOR.
[2020-04-07 12:49] VITALS: BP 137/84
--- NOTE | 2020-04-07 14:24 | NUR ---
OT NOTE: ASSISTED PT TO BATHROOM AND BACK TO BED. PT REPORTING INCREASED ABDOMINAL PAIN. REPORTED THAT THEY DIDNT WANT TO SIT UP DUE TO PAIN. MARYELLEN BRINK, OTR/L
--- NOTE | 2020-04-07 14:55 | NUR ---
Nutrition follow-up: Pt with clear liquid diet ordered. Has been NPO/clear liquids x 5 days. Continues with thick, ramirez sputum per nursing. Wt: 175# Recommend starting ProcalAmine PPN @ 100 ml/hr if diet unable to advance past clear liquids within [address] hours. RDN following.
--- NOTE | 2020-04-07 15:04 | NUR ---
UP TO BATHROOM AND BACK TO BED.TATO MAT ON. MONITOR
[2020-04-07 17:25] VITALS: BP 136/64
[2020-04-07 20:00] VITALS: BP 138/62
[2020-04-08] VITALS: BP 107/56
[2020-04-08 04:00] VITALS: BP 138/82
--- NOTE | 2020-04-08 08:00 | NUR ---
ASSESSMENT PER FLOW SHEET. PATIENT IS WITHOUT DISTRESS.HE HAS GOTTEN OUT OF BED WITH ALARM SOUNDING.ASSIST TO BATHROOM AND BACK TO BED. PATIENT INSTRUCTED NOT TO GET UP BY HIMSELF.FALL PREVENTION IN PLACE WITH TATO.
[2020-04-08 09:30] VITALS: BP 148/52
[2020-04-08 10:04] LABS: BASOPHILS 0.4 % (0-2); HEMATOCRIT 38.9 % (42.0-54.0); HEMOGLOBIN 12.9 g/dL (13.5-17.5); IMMATURE GRANULOCYTES 1.3 % (0-5); LYMPHOCYTES 18.2 % (15-50); MCH 29.3 pg (26.0-34.0); MCHC 33.2 g/dL (31.0-37.0); MCV 88.4 fL (80.0-100.0); MEAN PLATELET VOLUME 10.2 fL (7.4-10.4); MONOCYTES 10.3 % (2-11); NEUTROPHILS 65.8 % (40-80); RDW 14.3 % (11.5-14.5)
[2020-04-08 10:06] LABS: WBC 11.4 10x3/uL (4.8-10.8)
[2020-04-08 10:07] LABS: PLATELET COUNT 520 10x3/uL (130-400)
[2020-04-08 10:19] LABS: CALC OSMOLALITY 267 mosm/kg (275-300); CARBON DIOXIDE 28.2 mmol/L (21.0-32.0); CHLORIDE - SERUM 100 mmol/L (98-107); CREATININE - SERUM 0.9 mg/dL (0.6-1.3); GLUCOSE 95 mg/dL (74-106); POTASSIUM - SERUM 3.4 mmol/L (3.5-5.1); SODIUM 135 mmol/L (136-145); UREA NITROGEN 8 mg/dL (7-18); eGFR NON AFRICAN AMERICAN 86 mL/min (90-120)
[2020-04-08 10:22] LABS: MAGNESIUM - SERUM 1.6 mg/dL (1.8-2.4); PHOSPHOROUS 1.6 mg/dL (2.5-4.9)
[2020-04-08] MEDS ORDERED: FLAGYL500 MG PO (12:18)
[2020-04-08] MEDS ORDERED: ZOFRAN ODT4 MG/UDTAB PO (12:21)
[2020-04-08] MEDS ORDERED: PROTONIX40 MG PO (12:22)
--- NOTE | 2020-04-08 12:27 | NUR ---
REMAINS WITHOUT DISTRESS.MONITOR
--- NOTE | 2020-04-08 12:31 | MORECARE ---
CASE MANAGEMENT DISCHARGE SUMMARY PATIENT: HARRISON JC UNIT: [id number] ADM DATE: 04/02/20 AGE: 80 : 39 SEX: M ROOM/BED: [facility] AUTHOR: PARKER ODONNELL PHYSICIAN: REFERRING PHYSICIAN: DARA BARONE MD DATE OF SERVICE: 04/08/20 Discharge Plan Patient Name: HARRISON JC [facility] [facility] 1940 Planned Disposition: Anticipated Discharge Date: Discharge Date: Expected LOS: Initial Reviewer: [email or web address] Initial Review Date: 04/08/2020 Generated: 04/08/20 1:31 pm DCPIA - Discharge Planning Initial Assessment Updated by [email or web address]: Rosmery Almeida on 04/08/20 12:29 pm * Is the patient Alert and Oriented? Yes * PCP FARRO * Preadmission Environment Home with Family * ADLs Independent * Other Equipment NONE * Community resources currently utilized None * Additional services required to return to the preadmission environment? No * Can the patient safely return to the preadmission environment? Yes * Has this patient been hospitalized within the prior 30 days at any hospital? No Coverage Notice Reviewer: [id number] - Jacy Albrecht Notice Issued Date-Time: 04/04/2020 17:43 Notice Type: IM Discharge Notice Notice Delivered To: Patient Relationship to Patient: Self Regional Vice President [employer] Name: Harrison Jc Delivery Method: HAND - Hand Delivered Lexy Days: Prior Verbal Notification: Recipient Understood Notice: Yes Recipient Signature: Yes Med Rec Note Co-signed by Attending: Coverage Notice Comment: DC IMM signed/delivered to patient. Original to chart. Patient Name: HARRISON JC Page [id number] at 1231 All edits/amendments must be made on the electronic document DICTATION DATE: 04/08/20 1231 IUSS MASTER ANALYST: GILBERTO 04/08/20 1231 RPT#: [id number] DC DATE: STATUS: ADM IN [facility] [address] [place] [address] END OF REPORT
--- NOTE | 2020-04-08 12:39 | MORECARE ---
CASE MANAGEMENT DISCHARGE SUMMARY PATIENT: HARRISON JC UNIT: [id number] ADM DATE: 04/02/20 AGE: 80 : 39 SEX: M ROOM/BED: D.2236 AUTHOR: PARKER ODONNELL PHYSICIAN: REFERRING PHYSICIAN: DARA BARONE MD DATE OF SERVICE: 04/08/20 Discharge Plan Patient Name: HARRISON JC Facility: [facility]:[place] : 1940 Planned Disposition: Anticipated Discharge Date: Discharge Date: Expected LOS: Initial Reviewer: [id number] Initial Review Date: 04/08/2020 Generated: 04/08/20 1:38 pm Comments DCP- Discharge Planning Updated by [email or web address]: Rosmery Almeida on 04/08/20 11:[address] Patient Name: HARRISON JC Admission Status: ER Accout number: [id number] Admission Date: 04-02-2020 : 1940 Admission Diagnosis:UNSPECIFIED ABDOMINAL PAIN Attending: DARA BARONE Current LOS: 6 Anticipated DC Date: Planned Disposition: Primary Insurance: MEDICARE A & B Discharge Planning Comments: CM met with patient at bedside after explaining CM role and obtaining verbal consent. CM discussed availability / needs of home health, REHAB and medical equipment. PATIENT DENIES ANY DISCHARGE NEEDS. IMM DELIVERED. Promotions Team Leader: Rosmery Almeida DCPIA - Discharge Planning Initial Assessment Updated by [email or web address]: Rosmery Almeida on 04/08/20 12:29 pm * Is the patient Alert and Oriented? Yes * PCP FARRO * Preadmission Environment Home with Family * ADLs Independent * Other Equipment NONE * Community resources currently utilized None * Additional services required to return to the preadmission environment? No * Can the patient safely return to the preadmission environment? Yes * Has this patient been hospitalized within the prior 30 days at any hospital? No Coverage Notice Reviewer: [id number] Ana Albrecht Notice Issued Date-Time: 04/04/2020 17:43 Notice Type: IM Discharge Notice Notice Delivered To: Patient Relationship to Patient: Self Furnace Combination Analyst Name: Harrison Jc Delivery Method: HAND - Hand Delivered Lexy Days: Prior Verbal Notification: Recipient Understood Notice: Yes Recipient Signature: Yes Med Rec Note Co-signed by Attending: Coverage Notice Comment: DC IMM signed/delivered to patient. Original to chart. Reviewer: [id number] - Rosmery Almeida Notice Issued Date-Time: 04/08/2020 12:38 Notice Type: IM Discharge Notice Notice Delivered To: Patient Relationship to Patient: Furnace Combination Analyst Name: Delivery Method: HAND - Hand Delivered Lexy Days: Prior Verbal Notification: Recipient Understood Notice: Yes Recipient Signature: Yes Med Rec Note Co-signed by Attending: Coverage Notice Comment: Last DP export: 04/08/20 11:31 a Patient Name: HARRISON JC Page [id number] at 1239 All edits/amendments must be made on the electronic document DICTATION DATE: 04/08/20 1238 GREEN CHAIN PULLER: GILBERTO 04/08/20 1238 RPT#: [id number] DC DATE: STATUS: ADM IN [facility] [address] [place] [address] END OF REPORT
--- NOTE | 2020-04-08 14:37 | NUR ---
DC INSTRUCTIONS,STATES UNDERSTANDING. PORT FLUSHED WITH HEPARIN AND SALINE.NEEDLE DCD.
--- NOTE | 2020-04-08 15:09 | NUR ---
LEFT UNIT VIA WHEELCHAIR FOR TRANSPORT HOME
--- NOTE | 2020-04-09 08:04 | MORECARE ---
CASE MANAGEMENT DISCHARGE SUMMARY PATIENT: HARRISON JC UNIT: [id number] ADM DATE: 04/02/20 AGE: 80 : 39 SEX: M ROOM/BED: D.2236 AUTHOR: PARKER ODONNELL PHYSICIAN: REFERRING PHYSICIAN: DARA BARONE MD DATE OF SERVICE: 04/09/20 Discharge Plan Patient Name: HARRISON JC Facility: [facility]:[place] : 1940 Planned Disposition: Anticipated Discharge Date: Discharge Date: 04/08/2020 Expected LOS: Initial Reviewer: [id number] Initial Review Date: 04/08/2020 Generated: 04/09/20 9:03 am Comments DCP- Discharge Planning Updated by [email or web address]: Rosmery Almeida on 04/08/20 11:[address] Patient Name: HARRISON JC Admission Status: ER Accout number: [id number] Admission Date: 04-02-2020 : 1940 Admission Diagnosis:UNSPECIFIED ABDOMINAL PAIN Attending: DARA BARONE Current LOS: 6 Anticipated DC Date: Planned Disposition: Primary Insurance: MEDICARE A & B Discharge Planning Comments: CM met with patient at bedside after explaining CM role and obtaining verbal consent. CM discussed availability / needs of home health, REHAB and medical equipment. PATIENT DENIES ANY DISCHARGE NEEDS. IMM DELIVERED. Financial Advocate: Rosmery Almeida DCPIA - Discharge Planning Initial Assessment Updated by [email or web address]: Rosmery Almeida on 04/08/20 12:29 pm * Is the patient Alert and Oriented? Yes * PCP FARRO * Preadmission Environment Home with Family * ADLs Independent * Other Equipment NONE * Community resources currently utilized None * Additional services required to return to the preadmission environment? No * Can the patient safely return to the preadmission environment? Yes * Has this patient been hospitalized within the prior 30 days at any hospital? No Coverage Notice Reviewer: [id number] Ana Albrecht Notice Issued Date-Time: 04/04/2020 17:43 Notice Type: IM Discharge Notice Notice Delivered To: Patient Relationship to Patient: Self Block Setter [place] Name: Harrison Jc Delivery Method: HAND - Hand Delivered Lexy Days: Prior Verbal Notification: Recipient Understood Notice: Yes Recipient Signature: Yes Med Rec Note Co-signed by Attending: Coverage Notice Comment: DC IMM signed/delivered to patient. Original to chart. Reviewer: [email or web address] Ana Almeida Notice Issued Date-Time: 04/08/2020 12:38 Notice Type: IM Discharge Notice Notice Delivered To: Patient Relationship to Patient: Block Setter [place] Name: Delivery Method: HAND - Hand Delivered Lexy Days: Prior Verbal Notification: Recipient Understood Notice: Yes Recipient Signature: Yes Med Rec Note Co-signed by Attending: Coverage Notice Comment: Last DP export: 04/08/20 11:39 a Patient Name: HARRISON JC Page [id number] at 0804 All edits/amendments must be made on the electronic document DICTATION DATE: 04/09/20803 DENSITOMETRIST: GILBERTO 04/09/20 08 RPT#: [id number] DC DATE:04/08/20 STATUS: DIS IN [facility] [address] [place] [address] END OF REPORT
== END 2020-04-08 15:09 | disposition home or self-care (01) | DRG 438 ==
LOC: D.ER 14:37 → D.MS 17:17
PROVIDERS: Emergency Medicine; Family Medicine; ADMIT Family Medicine; ATTEND Family Medicine
DX: K85.90 Acute pancreatitis without necrosis or infection, unspecified (principal); G93.41 Metabolic encephalopathy; E87.1 Hypo-osmolality and hyponatremia; N32.1 Vesicointestinal fistula; D64.9 Anemia, unspecified; E83.42 Hypomagnesemia; I48.0 Paroxysmal atrial fibrillation; I25.10 Atherosclerotic heart disease of native coronary artery without angina pectoris; N40.0 Benign prostatic hyperplasia without lower urinary tract symptoms; L97.519 Non-pressure chronic ulcer of other part of right foot with unspecified severity; I73.9 Peripheral vascular disease, unspecified; I10 Essential (primary) hypertension; F31.9 Bipolar disorder, unspecified; C43.71 Malignant melanoma of right lower limb, including hip